=== PATIENT | female | born 1940 | race Caucasian/White ===

== ENCOUNTER 2019-09-14 08:15 | Outpatient (CLI) | payer MEDICARE, SELFPAY ==
[2019-09-14 08:28] LABS: Add Urine Microscopic? YES; Appearance Urine Clear (Clear); Basophils Absolute Auto 0.06 K/mm3 (0.00-0.10); Basophils Percent Auto 0.8 % (0.0-1.0); Bilirubin Urine Negative (Negative); Blood Urine 2+ (Negative); Color Urine Yellow (Yellow); Eosinophils Absolute Auto 0.44 K/mm3 (0.02-0.50); Eosinophils Percent Auto 5.9 % (1.0-6.0); Glucose Urine UA Negative (Negative); Hemoglobin 12.5 g/dL (11.7-13.8); Immature Granulocyte Absolute 0.01 K/mm3 (0.00-0.00); Immature Granulocyte Percent A 0.1 % (0.0-0.0); Ketones Urine Trace (Negative); Leukocyte Esterase Ur 2+ (Negative); Lymphocytes Absolute Auto 1.83 K/mm3 (1.10-4.50); Lymphocytes Percent Auto 24.4 % (18.0-42.0); Mean Corpuscular HGB Conc 33.8 g/dL (32.0-36.0); Mean Corpuscular Volume 88.7 fL (78.0-102.0); Mean Platelet Volume 11.2 fl (9.2-11.8); Monocytes Percent Auto 10.7 % (2.0-11.0); Neutrophils Absolute Auto 4.4 K/mm3 (1.7-7.2); Neutrophils Percent Auto 58.1 % (50.0-70.0); Nitrate Urine Negative (Negative); Platelet Count Result 272 K/mm3 (150-420); Protein Urine Negative (Negative); Red Blood Count 4.17 M/mm3 (4.20-5.40); Red Cell Distribution Width 14.7 % (11.6-14.4); Specific Grav Ur 1.025 (1.010-1.020); Urobilinogen Urine 0.2 mg/dL (0.2-1.0); White Blood Count 7.5 K/mm3 (4.8-10.8)
[2019-09-14 08:35] LABS: Squamous Epithelial Cell Urine Few /hpf (Few)
[2019-09-14 08:36] LABS: Bacteria Urine 1+ /hpf; Mucus Urine Moderate /lpf
[2019-09-14 09:04] LABS: Hemoglobin A1C 6.3 % (<5.7)
[2019-09-14 09:47] LABS: Alanine Aminotransferase 28 U/L (14-59); Albumin Level 3.5 g/dL (3.4-5.0); Alkaline Phosphatase 75 U/L (46-116); Anion Gap 10.5 mmol/L (7-16); Aspartate Amino Transferase 16 U/L (15-37); Bilirubin,Total 0.4 mg/dL (0.00-1.00); Blood Urea Nitrogen 17 mg/dL (7-18); Calcium 8.3 mg/dL (8.5-10.1); Carbon Dioxide 30 mmol/L (21-32); Chloride 105 mmol/L (98-108); Cholesterol 165 mg/dL (0-200); Estimated Glomerular Filt Rate > 60; Free T3 2.58 pg/mL (2.18-3.98); Free T4 Free Thyroxine 1.17 ng/dL (0.76-1.46); Glucose 104 mg/dL (70-99); HDL Direct 49 mg/dL (40-60); LDL Cholesterol Calculated 101 mg/dL (<130); Osmolality Calculated 295 mOsm/kg (285-295); Potassium 3.5 mmol/L (3.5-5.1); Sodium 142 mmol/L (136-145); Thyroid Stimulating Hormone 1.04 uIU/mL (0.36-3.74); Total Protein 6.8 g/dL (6.4-8.2); Triglycerides 76 mg/dL (0-150)
== END 2019-09-14 08:16 | disposition home or self-care (01) ==
LOC: CHSLAB 08:17
PROVIDERS: PCP Internal Medicine; Visit Provider Internal Medicine
DX: I48.0 Paroxysmal atrial fibrillation (principal); E03.4 Atrophy of thyroid (acquired); E64.9 Sequelae of unspecified nutritional deficiency; R73.01 Impaired fasting glucose
CPT/HCPCS: 36415; 80053; 80061; 81001; 83036; 84439; 84443; 84481; 85025

== ENCOUNTER 2020-01-24 12:32 | Outpatient (CLI) | payer MEDICARE, SELFPAY | END 2020-01-24 12:33 | disposition home or self-care (01) | LOC: CHSLAB 12:36 | PROVIDERS: PCP Internal Medicine; Visit Provider Specialist | DX: L82.1 Other seborrheic keratosis (principal) | CPT/HCPCS: 88305 ==

== ENCOUNTER 2020-03-16 08:32 | Outpatient (CLI) | payer MEDICARE, SELFPAY ==
[2020-03-16 08:42] LABS: Basophils Absolute Auto 0.11 K/mm3 (0.00-0.10); Basophils Percent Auto 1.4 % (0.0-1.0); Eosinophils Absolute Auto 0.49 K/mm3 (0.02-0.50); Eosinophils Percent Auto 6.1 % (1.0-6.0); Hematocrit 40.5 % (35.0-42.0); Hemoglobin 13.3 g/dL (11.7-13.8); Immature Granulocyte Absolute 0.03 K/mm3 (0.00-0.00); Immature Granulocyte Percent A 0.4 % (0.0-0.0); Lymphocytes Absolute Auto 1.87 K/mm3 (1.10-4.50); Lymphocytes Percent Auto 23.2 % (18.0-42.0); Mean Corpuscular HGB Conc 32.8 g/dL (32.0-36.0); Mean Corpuscular Volume 91.4 fL (78.0-102.0); Monocytes Absolute Auto 0.77 K/mm3 (0.10-0.90); Monocytes Percent Auto 9.6 % (2.0-11.0); Neutrophils Absolute Auto 4.8 K/mm3 (1.7-7.2); Neutrophils Percent Auto 59.3 % (50.0-70.0); Platelet Count Result 296 K/mm3 (150-420); Red Blood Count 4.43 M/mm3 (4.20-5.40); Red Cell Distribution Width 13.8 % (11.6-14.4); White Blood Count 8.1 K/mm3 (4.8-10.8)
[2020-03-16 08:52] LABS: Add Urine Microscopic? YES; Appearance Urine Clear (Clear); Bilirubin Urine Negative (Negative); Blood Urine 1+ (Negative); Color Urine Yellow (Yellow); Glucose Urine UA Negative (Negative); Ketones Urine Negative (Negative); Leukocyte Esterase Ur 1+ (Negative); Nitrate Urine Negative (Negative); Protein Urine Negative (Negative); Urobilinogen Urine 0.2 mg/dL (0.2-1.0)
[2020-03-16 09:03] LABS: RBC Urine 0-2 /hpf (0-2); WBC Urine 0-3 /hpf (0-3)
[2020-03-16 09:04] LABS: Bacteria Urine Trace /hpf; Renal Epithelial Cells Urine Few /hpf
[2020-03-16 09:07] LABS: Hemoglobin A1C 5.7 % (<5.7)
[2020-03-16 10:07] LABS: Alanine Aminotransferase 24 U/L (14-59); Albumin Level 3.8 g/dL (3.4-5.0); Alkaline Phosphatase 88 U/L (46-116); Anion Gap 9 mmol/L (8-16); Aspartate Amino Transferase 14 U/L (15-37); Bilirubin,Total 0.6 mg/dL (0.00-1.00); Blood Urea Nitrogen 17 mg/dL (7-18); Calcium 9.2 mg/dL (8.5-10.1); Carbon Dioxide 28 mmol/L (21-32); Chloride 104 mmol/L (98-108); Estimated Glomerular Filt Rate > 60; Free T3 2.47 pg/mL (2.18-3.98); Free T4 Free Thyroxine 1.16 ng/dL (0.76-1.46); Glucose 99 mg/dL (70-99); Osmolality Calculated 293 mOsm/kg (285-295); Sodium 141 mmol/L (136-145); Thyroid Stimulating Hormone 0.68 uIU/mL (0.36-3.74); Total Protein 7.3 g/dL (6.4-8.2)
== END 2020-03-16 08:33 | disposition home or self-care (01) ==
LOC: CHSLAB 08:33
PROVIDERS: PCP Internal Medicine; Visit Provider Internal Medicine
DX: I48.0 Paroxysmal atrial fibrillation (principal); I10 Essential (primary) hypertension; E03.4 Atrophy of thyroid (acquired); R73.01 Impaired fasting glucose
CPT/HCPCS: 36415; 80053; 81001; 83036; 84439; 84443; 84481; 85025

== ENCOUNTER 2020-07-20 09:00 | Outpatient (CLI) | payer MEDICARE, SELFPAY | END 2020-07-20 09:01 | disposition home or self-care (01) | PROVIDERS: PCP Internal Medicine | DX: Z23 Encounter for immunization (principal) | CPT/HCPCS: 0001A; 91300 ==

== ENCOUNTER 2020-08-10 08:51 | Outpatient (CLI) | payer MEDICARE, SELFPAY | END 2020-08-10 08:52 | disposition home or self-care (01) | LOC: ANHCOVIDVC 08:51 | PROVIDERS: PCP Internal Medicine | DX: Z23 Encounter for immunization (principal) | CPT/HCPCS: 0002A; 91300 ==

== ENCOUNTER 2020-09-14 07:39 | Outpatient (CLI) | payer MEDICARE, SELFPAY ==
[2020-09-14 07:51] LABS: Appearance Urine Clear (Clear); Basophils Absolute Auto 0.09 K/mm3 (0.00-0.10); Basophils Percent Auto 1.2 % (0.0-1.0); Bilirubin Urine Negative (Negative); Blood Urine 2+ (Negative); Eosinophils Absolute Auto 0.43 K/mm3 (0.02-0.50); Eosinophils Percent Auto 5.5 % (1.0-6.0); Glucose Urine UA Negative (Negative); Hematocrit 39.7 % (35.0-42.0); Immature Granulocyte Absolute 0.02 K/mm3 (0.00-0.00); Immature Granulocyte Percent A 0.3 % (0.0-0.0); Ketones Urine Negative (Negative); Leukocyte Esterase Ur 2+ (Negative); Lymphocytes Absolute Auto 1.33 K/mm3 (1.10-4.50); Lymphocytes Percent Auto 17.1 % (18.0-42.0); Mean Corpuscular HGB Conc 32.7 g/dL (32.0-36.0); Mean Corpuscular Hemoglobin 30.2 pg (27.0-31.0); Mean Corpuscular Volume 92.3 fL (78.0-102.0); Mean Platelet Volume 11.1 fl (9.2-11.8); Monocytes Absolute Auto 0.72 K/mm3 (0.10-0.90); Monocytes Percent Auto 9.3 % (2.0-11.0); Neutrophils Absolute Auto 5.2 K/mm3 (1.7-7.2); Neutrophils Percent Auto 66.6 % (50.0-70.0); Nitrate Urine Negative (Negative); Platelet Count Result 257 K/mm3 (150-420); Protein Urine Negative (Negative); Specific Grav Ur 1.025 (1.010-1.020); Urobilinogen Urine 0.2 mg/dL (0.2-1.0); White Blood Count 7.8 K/mm3 (4.8-10.8)
[2020-09-14 08:00] LABS: Add Urine Microscopic? YES; Bacteria Urine 2+ /hpf; Color Urine Light Yellow (Yellow); Mucus Urine Few /lpf; Squamous Epithelial Cell Urine Few /hpf (Few); WBC Urine 16-20 /hpf (0-3)
[2020-09-14 08:05] LABS: Hemoglobin A1C 6.2 % (<5.7)
[2020-09-14 08:38] LABS: Alanine Aminotransferase 29 U/L (14-59); Albumin Level 3.7 g/dL (3.4-5.0); Alkaline Phosphatase 86 U/L (46-116); Anion Gap 10 mmol/L (8-16); Aspartate Amino Transferase 15 U/L (15-37); Bilirubin,Total 0.6 mg/dL (0.00-1.00); Blood Urea Nitrogen 15 mg/dL (7-18); Calcium 8.9 mg/dL (8.5-10.1); Carbon Dioxide 30 mmol/L (21-32); Chloride 103 mmol/L (98-108); Cholesterol 178 mg/dL (0-200); Estimated Glomerular Filt Rate > 60; Free T3 2.42 pg/mL (2.18-3.98); Free T4 Free Thyroxine 1.15 ng/dL (0.76-1.46); Glucose 109 mg/dL (70-99); HDL Direct 55 mg/dL (40-60); LDL Cholesterol Calculated 104 mg/dL (<130); Osmolality Calculated 297 mOsm/kg (285-295); Potassium 3.9 mmol/L (3.5-5.1); Sodium 143 mmol/L (136-145); Thyroid Stimulating Hormone 1.08 uIU/mL (0.36-3.74); Triglycerides 97 mg/dL (0-150)
== END 2020-09-14 07:40 | disposition home or self-care (01) ==
LOC: CHSLAB 07:41
PROVIDERS: PCP Internal Medicine; Visit Provider Internal Medicine
DX: E03.4 Atrophy of thyroid (acquired) (principal); E78.2 Mixed hyperlipidemia; I48.0 Paroxysmal atrial fibrillation; R73.01 Impaired fasting glucose
CPT/HCPCS: 36415; 80053; 80061; 81001; 83036; 84439; 84443; 84481; 85025

== ENCOUNTER 2021-03-16 09:07 | Outpatient (CLI) | payer MEDICARE, SELFPAY ==
[2021-03-16 09:29] LABS: Basophils Absolute Auto 0.08 K/mm3 (0.00-0.10); Basophils Percent Auto 1.2 % (0.0-1.0); Eosinophils Absolute Auto 0.34 K/mm3 (0.02-0.50); Hemoglobin 14.3 g/dL (11.7-13.8); Immature Granulocyte Absolute 0.02 K/mm3 (0.00-0.00); Immature Granulocyte Percent A 0.3 % (0.0-0.0); Mean Corpuscular Hemoglobin 30.8 pg (27.0-31.0); Mean Corpuscular Volume 90.3 fL (78.0-102.0); Mean Platelet Volume 11.4 fl (9.2-11.8); Monocytes Absolute Auto 0.64 K/mm3 (0.10-0.90); Monocytes Percent Auto 9.3 % (2.0-11.0); Neutrophils Absolute Auto 4.5 K/mm3 (1.7-7.2); Neutrophils Percent Auto 65.2 % (50.0-70.0); Platelet Count Result 253 K/mm3 (150-420); Red Blood Count 4.65 M/mm3 (4.20-5.40); Red Cell Distribution Width 13.9 % (11.6-14.4); White Blood Count 6.9 K/mm3 (4.8-10.8)
[2021-03-16 09:30] LABS: Add Urine Microscopic? YES; Appearance Urine Clear (Clear); Bilirubin Urine Negative (Negative); Blood Urine 2+ (Negative); Color Urine Light Yellow (Yellow); Glucose Urine UA Negative (Negative); Ketones Urine Negative (Negative); Leukocyte Esterase Ur 1+ LEU/UL (Negative); Nitrate Urine Negative (Negative); Protein Urine Negative (Negative); Urobilinogen Urine 0.2 mg/dL (0.2-1.0)
[2021-03-16 09:39] LABS: Bacteria Urine Trace /hpf; Mucus Urine Few /lpf; Squamous Epithelial Cell Urine Few /hpf (Few); WBC Urine 0-3 /hpf (0-3)
[2021-03-16 09:53] LABS: Hemoglobin A1C 5.6 % (<5.7)
[2021-03-16 10:32] LABS: Alanine Aminotransferase 28 U/L (14-59); Albumin Level 3.8 g/dL (3.4-5.0); Alkaline Phosphatase 92 U/L (46-116); Anion Gap 7 mmol/L (8-16); Aspartate Amino Transferase 13 U/L (15-37); Bilirubin,Total 0.6 mg/dL (0.00-1.00); Blood Urea Nitrogen 14 mg/dL (7-18); Calcium 8.9 mg/dL (8.5-10.1); Carbon Dioxide 32 mmol/L (21-32); Chloride 105 mmol/L (98-108); Cholesterol 182 mg/dL (0-200); Estimated Glomerular Filt Rate > 60; Free T3 2.61 pg/mL (2.18-3.98); Glucose 102 mg/dL (70-99); HDL Direct 64 mg/dL (40-60); LDL Cholesterol Calculated 102 mg/dL (<130); Osmolality Calculated 298 mOsm/kg (285-295); Potassium 4.1 mmol/L (3.5-5.1); Sodium 144 mmol/L (136-145); Thyroid Stimulating Hormone 1.19 uIU/mL (0.36-3.74); Total Protein 7.4 g/dL (6.4-8.2); Triglycerides 81 mg/dL (0-150)
== END 2021-03-16 09:08 | disposition home or self-care (01) ==
LOC: CHSLAB 09:09
PROVIDERS: PCP Internal Medicine; Visit Provider Internal Medicine
DX: E03.4 Atrophy of thyroid (acquired) (principal); I10 Essential (primary) hypertension; R73.01 Impaired fasting glucose; R82.90 Unspecified abnormal findings in urine
CPT/HCPCS: 36415; 80053; 80061; 81001; 83036; 84439; 84443; 84481; 85025; 87086

== ENCOUNTER 2021-09-14 07:42 | Outpatient (CLI) | payer MEDICARE, SELFPAY ==
[2021-09-14 08:00] LABS: Add Urine Microscopic? YES; Appearance Urine Clear (Clear); Basophils Absolute Auto 0.07 K/mm3 (0.00-0.10); Bilirubin Urine Negative (Negative); Blood Urine 1+ (Negative); Color Urine Light Yellow (Yellow); Eosinophils Absolute Auto 0.55 K/mm3 (0.02-0.50); Eosinophils Percent Auto 8.2 % (1.0-6.0); Glucose Urine UA Negative (Negative); Hematocrit 38.8 % (35.0-42.0); Hemoglobin 12.9 g/dL (11.7-13.8); Immature Granulocyte Absolute 0.03 K/mm3 (0.00-0.00); Immature Granulocyte Percent A 0.4 % (0.0-0.0); Ketones Urine Negative (Negative); Leukocyte Esterase Ur 1+ (Negative); Lymphocytes Absolute Auto 1.41 K/mm3 (1.10-4.50); Mean Corpuscular HGB Conc 33.2 g/dL (32.0-36.0); Mean Corpuscular Hemoglobin 31.1 pg (27.0-31.0); Mean Corpuscular Volume 93.5 fL (78.0-102.0); Mean Platelet Volume 11.2 fl (9.2-11.8); Monocytes Absolute Auto 0.68 K/mm3 (0.10-0.90); Monocytes Percent Auto 10.1 % (2.0-11.0); Neutrophils Percent Auto 59.3 % (50.0-70.0); Nitrate Urine Negative (Negative); Platelet Count Result 239 K/mm3 (150-420); Protein Urine Negative (Negative); Red Blood Count 4.15 M/mm3 (4.20-5.40); Red Cell Distribution Width 13.9 % (11.6-14.4); Urobilinogen Urine 0.2 mg/dL (0.2-1.0); White Blood Count 6.7 K/mm3 (4.8-10.8)
[2021-09-14 08:20] LABS: Bacteria Urine Trace /hpf; Squamous Epithelial Cell Urine Few /hpf (Few)
[2021-09-14 08:33] LABS: Alanine Aminotransferase 26 U/L (14-59); Albumin Level 3.5 g/dL (3.4-5.0); Alkaline Phosphatase 90 U/L (46-116); Anion Gap 4 mmol/L (8-16); Aspartate Amino Transferase 13 U/L (15-37); Bilirubin,Total 0.6 mg/dL (0.00-1.00); Blood Urea Nitrogen 18 mg/dL (7-18); Calcium 8.6 mg/dL (8.5-10.1); Carbon Dioxide 30 mmol/L (21-32); Chloride 105 mmol/L (98-108); Cholesterol 170 mg/dL (0-200); Creatine Kinase 135 U/L (26-192); Estimated Glomerular Filt Rate > 60; Free T4 Free Thyroxine 1.15 ng/dL (0.76-1.46); Glucose 115 mg/dL (70-99); HDL Direct 56 mg/dL (40-60); LDL Cholesterol Calculated 96 mg/dL (<130); Osmolality Calculated 290 mOsm/kg (285-295); Potassium 3.7 mmol/L (3.5-5.1); Sodium 139 mmol/L (136-145); Thyroid Stimulating Hormone 1.02 uIU/mL (0.36-3.74); Total Protein 7.4 g/dL (6.4-8.2); Triglycerides 88 mg/dL (0-150)
== END 2021-09-14 07:43 | disposition home or self-care (01) ==
LOC: CHSLAB 07:45
PROVIDERS: PCP Internal Medicine; Visit Provider Internal Medicine
DX: E03.4 Atrophy of thyroid (acquired) (principal); I10 Essential (primary) hypertension; E78.2 Mixed hyperlipidemia; R73.01 Impaired fasting glucose
CPT/HCPCS: 36415; 80053; 80061; 81001; 82550; 83036; 84439; 84443; 85025

== ENCOUNTER 2022-03-17 08:55 | Outpatient (CLI) | payer MEDICARE, SELFPAY ==
[2022-03-17 09:17] LABS: Appearance Urine Clear (Clear); Basophils Absolute Auto 0.07 K/mm3 (0.00-0.10); Bilirubin Urine Negative (Negative); Blood Urine 1+ (Negative); Eosinophils Absolute Auto 0.53 K/mm3 (0.02-0.50); Eosinophils Percent Auto 7.8 % (1.0-6.0); Glucose Urine UA Negative (Negative); Hematocrit 40.3 % (35.0-42.0); Hemoglobin 13.7 g/dL (11.7-13.8); Immature Granulocyte Absolute 0.02 K/mm3 (0.00-0.00); Immature Granulocyte Percent A 0.3 % (0.0-0.0); Ketones Urine Negative (Negative); Leukocyte Esterase Ur Trace (Negative); Lymphocytes Absolute Auto 1.41 K/mm3 (1.10-4.50); Lymphocytes Percent Auto 20.9 % (18.0-42.0); Mean Corpuscular Hemoglobin 31.4 pg (27.0-31.0); Mean Corpuscular Volume 92.4 fL (78.0-102.0); Mean Platelet Volume 11.1 fl (9.2-11.8); Monocytes Absolute Auto 0.56 K/mm3 (0.10-0.90); Monocytes Percent Auto 8.3 % (2.0-11.0); Neutrophils Absolute Auto 4.2 K/mm3 (1.7-7.2); Neutrophils Percent Auto 61.7 % (50.0-70.0); Nitrate Urine Negative (Negative); Platelet Count Result 253 K/mm3 (150-420); Protein Urine Negative (Negative); Red Blood Count 4.36 M/mm3 (4.20-5.40); Red Cell Distribution Width 13.4 % (11.6-14.4); Specific Grav Ur 1.015 (1.010-1.020); Urobilinogen Urine 0.2 mg/dL (0.2-1.0); White Blood Count 6.8 K/mm3 (4.8-10.8)
[2022-03-17 09:29] LABS: Add Urine Microscopic? YES; Color Urine Light Yellow (Yellow)
[2022-03-17 09:30] LABS: Bacteria Urine Trace /hpf; Squamous Epithelial Cell Urine Few /hpf (Few); WBC Urine 0-3 /hpf (0-3)
[2022-03-17 09:57] LABS: Alanine Aminotransferase 27 U/L (14-59); Albumin Level 3.7 g/dL (3.4-5.0); Alkaline Phosphatase 89 U/L (46-116); Anion Gap 6 mmol/L (8-16); Aspartate Amino Transferase 15 U/L (15-37); Bilirubin,Total 0.5 mg/dL (0.00-1.00); Blood Urea Nitrogen 15 mg/dL (7-18); Calcium 8.8 mg/dL (8.5-10.1); Carbon Dioxide 34 mmol/L (21-32); Chloride 103 mmol/L (98-108); Cholesterol 183 mg/dL (0-200); Estimated Glomerular Filt Rate > 60; Free T3 2.49 pg/mL (2.18-3.98); Free T4 Free Thyroxine 0.99 ng/dL (0.76-1.46); Glucose 119 mg/dL (70-99); HDL Direct 56 mg/dL (40-60); LDL Cholesterol Calculated 101 mg/dL (<130); Osmolality Calculated 297 mOsm/kg (285-295); Potassium 3.9 mmol/L (3.5-5.1); Sodium 143 mmol/L (136-145); Thyroid Stimulating Hormone 1.47 uIU/mL (0.36-3.74); Total Protein 7.3 g/dL (6.4-8.2); Triglycerides 130 mg/dL (0-150)
[2022-03-21 14:47] LABS: Vitamin D 25 Hydroxy 29 ng/mL (30-100)
== END 2022-03-17 08:56 | disposition home or self-care (01) ==
LOC: CHSLAB 08:58
PROVIDERS: PCP Internal Medicine; Visit Provider Internal Medicine
DX: R73.01 Impaired fasting glucose (principal); E78.2 Mixed hyperlipidemia; M81.0 Age-related osteoporosis without current pathological fracture; I48.0 Paroxysmal atrial fibrillation; I10 Essential (primary) hypertension; E03.4 Atrophy of thyroid (acquired)
CPT/HCPCS: 36415; 80053; 80061; 81001; 82306; 83036; 84439; 84443; 84481; 85025

== ENCOUNTER 2022-09-15 10:03 | Outpatient (CLI) | payer MEDICARE, SELFPAY ==
[2022-09-15 10:22] LABS: Basophils Absolute Auto 0.08 K/mm3 (0.00-0.10); Basophils Percent Auto 1.1 % (0.0-1.0); Eosinophils Absolute Auto 0.49 K/mm3 (0.02-0.50); Eosinophils Percent Auto 6.7 % (1.0-6.0); Hematocrit 39.5 % (35.0-42.0); Hemoglobin 13.1 g/dL (11.7-13.8); Immature Granulocyte Absolute 0.02 K/mm3 (0.00-0.00); Immature Granulocyte Percent A 0.3 % (0.0-0.0); Lymphocytes Absolute Auto 1.91 K/mm3 (1.10-4.50); Lymphocytes Percent Auto 26.2 % (18.0-42.0); Mean Corpuscular HGB Conc 33.2 g/dL (32.0-36.0); Mean Corpuscular Volume 93.4 fL (78.0-102.0); Mean Platelet Volume 10.8 fl (9.2-11.8); Monocytes Absolute Auto 0.66 K/mm3 (0.10-0.90); Monocytes Percent Auto 9.1 % (2.0-11.0); Neutrophils Absolute Auto 4.1 K/mm3 (1.7-7.2); Neutrophils Percent Auto 56.6 % (50.0-70.0); Platelet Count Result 262 K/mm3 (150-420); Red Blood Count 4.23 M/mm3 (4.20-5.40); White Blood Count 7.3 K/mm3 (4.8-10.8)
[2022-09-15 10:33] LABS: Hemoglobin A1C 6.1 % (<5.7)
[2022-09-15 10:37] LABS: Appearance Urine Clear (Clear); Bilirubin Urine Negative (Negative); Blood Urine 1+ (Negative); Color Urine Light Yellow (Yellow); Glucose Urine UA Negative (Negative); Ketones Urine Negative (Negative); Leukocyte Esterase Ur Trace (Negative); Nitrate Urine Negative (Negative); Protein Urine Negative (Negative); Urobilinogen Urine 0.2 mg/dL (0.2-1.0)
[2022-09-15 10:45] LABS: Add Urine Microscopic? YES; Bacteria Urine Rare /hpf; RBC Urine 0-2 /hpf (0-2); Squamous Epithelial Cell Urine Rare /hpf (Few); WBC Urine None seen /hpf (0-3)
[2022-09-15 10:47] LABS: Creatinine Urine 96.71 mg/dL (40-278); MALB Creatinine Ratio 13.4 mg/g (0-30); Microalbumin Urine Random < 13.0 mg/L
[2022-09-15 11:25] LABS: Alanine Aminotransferase 30 U/L (14-59); Albumin Level 3.6 g/dL (3.4-5.0); Alkaline Phosphatase 85 U/L (46-116); Anion Gap 9 mmol/L (8-16); Aspartate Amino Transferase 20 U/L (15-37); Bilirubin,Total 0.5 mg/dL (0.00-1.00); Blood Urea Nitrogen 16 mg/dL (7-18); Calcium 9.1 mg/dL (8.5-10.1); Carbon Dioxide 29 mmol/L (21-32); Chloride 104 mmol/L (98-108); Cholesterol 167 mg/dL (0-200); Creatine Kinase 113 U/L (26-192); Estimated Glomerular Filt Rate > 60; Free T3 2.93 pg/mL (2.18-3.98); Free T4 Free Thyroxine 1.24 ng/dL (0.76-1.46); Glucose 113 mg/dL (70-99); HDL Direct 53 mg/dL (40-60); LDL Cholesterol Calculated 93 mg/dL (<130); Osmolality Calculated 296 mOsm/kg (285-295); Potassium 3.9 mmol/L (3.5-5.1); Sodium 142 mmol/L (136-145); Thyroid Stimulating Hormone 0.31 uIU/mL (0.36-3.74); Total Protein 7.1 g/dL (6.4-8.2); Triglycerides 107 mg/dL (0-150)
== END 2022-09-15 10:04 | disposition home or self-care (01) ==
LOC: CHSLAB 10:05
PROVIDERS: PCP Internal Medicine; Visit Provider Internal Medicine
DX: I10 Essential (primary) hypertension (principal); E78.2 Mixed hyperlipidemia; E03.4 Atrophy of thyroid (acquired); R73.01 Impaired fasting glucose
CPT/HCPCS: 36415; 80053; 80061; 81001; 82043; 82550; 83036; 84439; 84443; 84481; 85025

== ENCOUNTER 2023-03-31 09:26 | Outpatient (CLI) | payer MEDICARE, SELFPAY ==
[2023-03-31 09:43] LABS: Basophils Absolute Auto 0.08 K/mm3 (0.00-0.10); Basophils Percent Auto 1.3 % (0.0-1.0); Eosinophils Absolute Auto 0.35 K/mm3 (0.02-0.50); Eosinophils Percent Auto 5.9 % (1.0-6.0); Hematocrit 37.7 % (35.0-42.0); Hemoglobin 12.3 g/dL (11.7-13.8); Immature Granulocyte Absolute 0.01 K/mm3 (0.00-0.00); Immature Granulocyte Percent A 0.2 % (0.0-0.0); Lymphocytes Absolute Auto 1.46 K/mm3 (1.10-4.50); Lymphocytes Percent Auto 24.4 % (18.0-42.0); Mean Corpuscular HGB Conc 32.6 g/dL (32.0-36.0); Mean Corpuscular Hemoglobin 29.8 pg (27.0-31.0); Mean Corpuscular Volume 91.3 fL (78.0-102.0); Neutrophils Absolute Auto 3.5 K/mm3 (1.7-7.2); Neutrophils Percent Auto 58.2 % (50.0-70.0); Platelet Count Result 267 K/mm3 (150-420); Red Blood Count 4.13 M/mm3 (4.20-5.40); Red Cell Distribution Width 14.6 % (11.6-14.4)
[2023-03-31 09:47] LABS: Appearance Urine Clear (Clear); Bilirubin Urine Negative (Negative); Blood Urine 2+ (Negative); Color Urine Yellow (Yellow); Glucose Urine UA Negative (Negative); Ketones Urine Negative (Negative); Leukocyte Esterase Ur Negative (Negative); Nitrate Urine Negative (Negative); Protein Urine Negative (Negative); Specific Grav Ur >= 1.030 (1.010-1.020); Urobilinogen Urine 0.2 mg/dL (0.2-1.0)
[2023-03-31 10:00] LABS: Add Urine Microscopic? YES
[2023-03-31 10:01] LABS: Bacteria Urine Trace /hpf; Mucus Urine Few /lpf; Squamous Epithelial Cell Urine Moderate /hpf (Few); WBC Urine None seen /hpf (0-3)
[2023-03-31 10:52] LABS: Alanine Aminotransferase 24 U/L (14-59); Albumin Level 3.7 g/dL (3.4-5.0); Alkaline Phosphatase 106 U/L (46-116); Anion Gap 6 mmol/L (8-16); Aspartate Amino Transferase 36 U/L (15-37); Bilirubin,Total 0.6 mg/dL (0.00-1.00); Blood Urea Nitrogen 16 mg/dL (7-18); Calcium 9.3 mg/dL (8.5-10.1); Carbon Dioxide 33 mmol/L (21-32); Chloride 100 mmol/L (98-108); Cholesterol 185 mg/dL (0-200); Creatine Kinase 114 U/L (26-192); Estimated Glomerular Filt Rate 59; Free T3 2.35 pg/mL (2.18-3.98); Free T4 Free Thyroxine 1.07 ng/dL (0.76-1.46); Glucose 104 mg/dL (70-99); HDL Direct 52 mg/dL (40-60); LDL Cholesterol Calculated 116 mg/dL (<130); Osmolality Calculated 289 mOsm/kg (285-295); Potassium 3.9 mmol/L (3.5-5.1); Sodium 139 mmol/L (136-145); Thyroid Stimulating Hormone 2.88 uIU/mL (0.36-3.74); Total Protein 7.2 g/dL (6.4-8.2); Triglycerides 87 mg/dL (0-150)
== END 2023-03-31 09:27 | disposition home or self-care (01) ==
PROVIDERS: PCP Internal Medicine; Visit Provider Internal Medicine
DX: I48.0 Paroxysmal atrial fibrillation (principal); I10 Essential (primary) hypertension; E03.4 Atrophy of thyroid (acquired); R31.21 Asymptomatic microscopic hematuria; R73.01 Impaired fasting glucose
CPT/HCPCS: 36415; 80053; 80061; 81001; 82550; 83036; 84439; 84443; 84481; 85025

== ENCOUNTER 2023-05-21 12:56 | Outpatient (CLI) | payer MEDICARE, SELFPAY ==
[2023-05-21 13:37] LABS: Anion Gap 9 mmol/L (8-16); Blood Urea Nitrogen 16 mg/dL (7-18); Carbon Dioxide 32 mmol/L (21-32); Chloride 101 mmol/L (98-108); Estimated Glomerular Filt Rate > 60; Glucose 102 mg/dL (70-99); Osmolality Calculated 295 mOsm/kg (285-295); Potassium 3.7 mmol/L (3.5-5.1); Sodium 142 mmol/L (136-145)
== END 2023-05-21 12:57 | disposition home or self-care (01) ==
LOC: CHSLAB 12:59
PROVIDERS: PCP Internal Medicine; Visit Provider Internal Medicine
DX: I10 Essential (primary) hypertension (principal)
CPT/HCPCS: 36415; 80048

== ENCOUNTER 2023-10-10 08:51 | Outpatient (CLI) | payer MEDICARE, SELFPAY ==
[2023-10-10 10:35] LABS: Basophils Absolute Auto 0.06 K/mm3 (0.00-0.10); Basophils Percent Auto 0.9 % (0.0-1.0); Eosinophils Percent Auto 5.7 % (1.0-6.0); Hematocrit 37.3 % (35.0-42.0); Hemoglobin 12.3 g/dL (11.7-13.8); Immature Granulocyte Absolute 0.02 K/mm3 (0.00-0.00); Immature Granulocyte Percent A 0.3 % (0.0-0.0); Lymphocytes Absolute Auto 1.39 K/mm3 (1.10-4.50); Lymphocytes Percent Auto 19.8 % (18.0-42.0); Mean Corpuscular Hemoglobin 29.7 pg (27.0-31.0); Mean Corpuscular Volume 90.1 fL (78.0-102.0); Mean Platelet Volume 11.5 fl (9.2-11.8); Monocytes Percent Auto 8.6 % (2.0-11.0); Neutrophils Absolute Auto 4.54 K/mm3 (1.70-7.20); Neutrophils Percent Auto 64.7 % (50.0-70.0); Platelet Count Result 253 K/mm3 (150-420); Red Blood Count 4.14 M/mm3 (4.20-5.40); Red Cell Distribution Width 14.7 % (11.6-14.4)
[2023-10-10 10:53] LABS: Alanine Aminotransferase 24 U/L (14-59); Albumin Level 3.5 g/dL (3.4-5.0); Alkaline Phosphatase 83 U/L (46-116); Anion Gap 7 mmol/L (4-12); Aspartate Amino Transferase 16 U/L (15-37); Bilirubin,Total 0.6 mg/dL (0.00-1.00); Blood Urea Nitrogen 15 mg/dL (7-18); Calcium 8.8 mg/dL (8.5-10.1); Carbon Dioxide 29 mmol/L (21-32); Chloride 103 mmol/L (98-108); Cholesterol 177 mg/dL (0-200); Estimated Glomerular Filt Rate > 60; Free T4 Free Thyroxine 1.21 ng/dL (0.76-1.46); Glucose 102 mg/dL (70-99); HDL Direct 57 mg/dL (40-60); LDL Cholesterol Calculated 102 mg/dL (<130); Osmolality Calculated 288 mOsm/kg (285-295); Sodium 139 mmol/L (136-145); Thyroid Stimulating Hormone 0.68 uIU/mL (0.36-3.74); Total Protein 7.2 g/dL (6.4-8.2); Triglycerides 88 mg/dL (0-150)
[2023-10-10 12:25] LABS: Appearance Urine Clear (Clear); Bilirubin Urine Negative (Negative); Blood Urine 1+ (Negative); Color Urine Light Yellow (Yellow); Glucose Urine UA Negative (Negative); Hemoglobin A1C 6.1 % (<5.7); Ketones Urine Negative (Negative); Leukocyte Esterase Ur Negative LEU/UL (Negative); Nitrate Urine Negative (Negative); Protein Urine Negative (Negative); Specific Grav Ur 1.015 (1.010-1.020); Urobilinogen Urine 0.2 mg/dL (0.2-1.0)
[2023-10-10 12:38] LABS: Add Urine Microscopic? YES
[2023-10-10 12:45] LABS: RBC Urine None seen /hpf (0-2)
== END 2023-10-10 08:52 | disposition home or self-care (01) ==
LOC: CHSLAB 08:53
PROVIDERS: PCP Internal Medicine; Visit Provider Internal Medicine
DX: I10 Essential (primary) hypertension (principal); E03.4 Atrophy of thyroid (acquired); R31.21 Asymptomatic microscopic hematuria; R73.01 Impaired fasting glucose
CPT/HCPCS: 36415; 80053; 80061; 81001; 83036; 84439; 84443; 85025

== ENCOUNTER 2023-11-03 10:55 | Outpatient (RCR) | payer MEDICARE, SELFPAY ==
--- NOTE | 2023-11-03 12:27 | OPREHPOC ---
Outpatient Therapy Plan of Care This is a Multidisciplinary Plan of Care that may contain components documented by all disciplines (PT, OT, and ST.) PT Problem 1 PT Problem #1 Knowledge Deficit PT Goal 1 Goal The patient will be independent in a home exercise program. Target Visit 2 PT Problem 2 PT Problem #2 Impaired Endurance PT Goal 1 Goal The patient will be able to ambulate 800 feet during the 6 minute walk test without rest breaks. Target Visit 12 PT Problem 3 PT Problem #3 Impaired Functional Mobil PT Goal 1 Goal The patient will be able to transfer sit to stand without use of the UE to improve functional mobility and LE strength. Target Visit 12 PT Problem 4 PT Problem #4 Impaired Strength PT Goal 1 Goal The patient will improve right ankle inversion and eversion strength to 3+/5 to improve stability in the ankle for gait and single limb stance. Target Visit 12 PT Problem 5 PT Problem #5 Impaired Balance PT Goal 1 Goal The patient will improve the Tinetti Balance Scale to at least 19 indicating a moderate fall risk instead of a high fall risk. Target Visit 12
--- NOTE | 2023-11-03 12:28 | PTOPEVAL1 ---
Assessment and note entered by Suzie Butts, PT Evaluation Information Assessment Status Evaluation ICD-10 Condition Codes (PT) R26.9 Other ICD-10 Condition Codes ( Z91.81 PT) Onset 10/26/23 Subjective Information Dominguez Lowe reports she had a spontaneous fracture of her right ankle in November 2022 that was caused by having a partial tear in her tibialis tendon prior to the fracture. She underwent surgical stabilization of the fracture on 11/07/22 and did not have any PT after the surgery. She also has been diagnosed with osteoporosis. She takes vitamin D for her osteoporosis. She has been seen by a bone density specialist and was recommended to have an injection for the osteoporosis. She was referred to PT by her bone density specialist to work on her balance and ability to walk. She is only ambulating household distances and short grocery trips. She is using a small based quad cane for ambulation and has for years. She last fell about a year ago when she broke her ankle. She reports she has a lot of trouble walking on uneven and sloped ground as well as decreased balance causing her to grab furniture a lot. She lives in a single story home with a basement and since she fractured her ankle she had a chair lift installed . She does have to go to the basement for laundry. She has a ramp to get into her house and she can not go up and down stairs. She has custom made orthotics. Reported Pain Level Pain Score 0: Self Report Assessment PT Clinical Summary Dominguez Lowe presents with poor balance and decreased gait. She sustained a right ankle compound fracture requiring surgical stabilization on 11/07/22. She also has osteoporosis. She reports inability to navigate stairs, decreased endurance with gait, and decreased balance leading to difficulty walking on uneven terrain and sloped ground. She demonstrates decreased right > left ankle, knee, and hip strength; decreased balance; altered gait; and decreased endurance. She will benefit from skilled PT to address these limitations. Plan of Care Interventions Gait Training,Neuro Re-education,Patient/Caregiver Educati,Therapeutic Activities PT Services Indicated Yes
--- NOTE | 2023-11-25 15:02 | OPREHPOC ---
Outpatient Therapy Plan of Care This is a Multidisciplinary Plan of Care that may contain components documented by all disciplines (PT, OT, and ST.) PT Problem 1 PT Problem #1 Knowledge Deficit PT Goal 1 Goal / Goal Update The patient will be independent in a home exercise program. Target Visit 2 Progress Met PT Problem 2 PT Problem #2 Impaired Endurance PT Goal 1 Goal / Goal Update The patient will be able to ambulate 800 feet during the 6 minute walk test without rest breaks. continue Target Visit 12 Progress Partially Met PT Problem 3 PT Problem #3 Impaired Functional Mobil PT Goal 1 Goal / Goal Update The patient will be able to transfer sit to stand without use of the UE to improve functional mobility and LE strength. Target Visit 12 Progress Met PT Problem 4 PT Problem #4 Impaired Strength PT Goal 1 Goal / Goal Update The patient will improve right ankle inversion and eversion strength to 3+/5 to improve stability in the ankle for gait and single limb stance. Target Visit 12 PT Problem 5 PT Problem #5 Impaired Balance PT Goal 1 Goal / Goal Update The patient will improve the Tinetti Balance Scale to at least 19 indicating a moderate fall risk instead of a high fall risk. Target Visit 12
--- NOTE | 2023-11-25 15:02 | PTOPPROGNS ---
Assessment and note entered by JT File, PT Evaluation Information Assessment Status Progress ICD-10 Condition Codes (PT) R26.9 Other ICD-10 Condition Codes ( Z91.81 PT) Onset 10/26/23 Subjective Information patient reports she feels she is coming along fair . she reports she was in a wheelchair for 9 months , and understands that her progress will be slow. she reports she has no pain today, and has had no falls. she reports she is still afraid she is going to have another collapse in her ankles. she reports she still has difficulty with stability of her foot while she is standing/walking. Assessment PT Clinical Summary mrs. mckeon presents to skilled PT today for her 10th skilled PT visit. she has made progress in ambulation mechanics, transfers, and balance. she had made partial progress towards goals, and continues to be a good rehab candidate. continued skilled PT is indicated to achieve remaining goals to improve her quality of life/functional activity performance Plan of Care Interventions Gait Training,Neuro Re-education,Patient/Caregiver Educati,Therapeutic Activities PT Services Indicated Yes Treatment Frequency and continue skilled PT per initial POC Duration These treatments will address the objective and functional deficits as defined above. The patient will be advanced safely and appropriately in order for the patient to progress towards his/her prior level of function. Additional exercises will be introduced and as well as a comprehensive home exercise program upon discharge, if needed, ?to ensure carryover of functional gains achieved in the clinic. This treatment plan has been reviewed and agreement upon by the patient.
== END 2023-11-30 16:00 | disposition home or self-care (01) ==
LOC: CHSPT 10:55
DX: Z91.81 History of falling (principal)
CPT/HCPCS: 97110; 97112; 97161; 97750

== ENCOUNTER 2024-04-18 09:48 | Outpatient (CLI) | payer MEDICARE, SELFPAY ==
[2024-04-18 10:17] LABS: Hematocrit 37.6 % (35.0-42.0); Hemoglobin 12.3 g/dL (11.7-13.8); Mean Corpuscular HGB Conc 32.7 g/dL (32-36); Mean Corpuscular Hemoglobin 29.6 pg (27.0-31.0); Mean Corpuscular Volume 90.6 fL (78.0-102.0); Mean Platelet Volume 10.9 fl (9.2-11.8); Platelet Count Result 231 K/mm3 (150-420); Red Blood Count 4.15 M/mm3 (4.20-5.40); Red Cell Distribution Width 14.3 % (11.6-14.4); White Blood Count 6.1 K/mm3 (4.8-10.8)
[2024-04-18 10:20] LABS: Add Urine Microscopic? YES; Appearance Urine Clear (Clear); Bilirubin Urine Negative (Negative); Blood Urine Trace-intact (Negative); Color Urine Light Yellow (Yellow); Glucose Urine UA Negative (Negative); Ketones Urine Negative (Negative); Leukocyte Esterase Ur 1+ (Negative); Nitrate Urine Negative (Negative); Protein Urine Negative (Negative); Specific Grav Ur 1.015 (1.010-1.020); Urobilinogen Urine 0.2 mg/dL (0.2-1.0)
[2024-04-18 10:24] LABS: Bacteria Urine Trace /hpf; RBC Urine 0-2 /hpf (0-2); Squamous Epithelial Cell Urine Moderate /hpf (Few); WBC Urine 0-3 /hpf (0-3)
[2024-04-18 10:27] LABS: Hemoglobin A1C 5.8 % (<5.7)
[2024-04-18 11:24] LABS: Alanine Aminotransferase 26 U/L (14-59); Albumin Level 3.5 g/dL (3.4-5.0); Alkaline Phosphatase 87 U/L (46-116); Anion Gap 7 mmol/L (4-12); Aspartate Amino Transferase 15 U/L (15-37); Bilirubin,Total 0.7 mg/dL (0.00-1.00); Blood Urea Nitrogen 14 mg/dL (7-18); Calcium 8.8 mg/dL (8.5-10.1); Carbon Dioxide 32 mmol/L (21-32); Chloride 104 mmol/L (98-108); Cholesterol 156 mg/dL (0-200); Creatine Kinase 120 U/L (26-192); Estimated Glomerular Filt Rate > 60; Free T4 Free Thyroxine 1.16 ng/dL (0.76-1.46); Glucose 102 mg/dL (70-99); HDL Direct 54 mg/dL (40-60); LDL Cholesterol Calculated 84 mg/dL (<130); Osmolality Calculated 296 mOsm/kg (285-295); Potassium 3.9 mmol/L (3.5-5.1); Sodium 143 mmol/L (136-145); Thyroid Stimulating Hormone 0.18 uIU/mL (0.36-3.74); Triglycerides 92 mg/dL (0-150)
== END 2024-04-18 09:49 | disposition home or self-care (01) ==
LOC: CHSLAB 09:50
PROVIDERS: PCP Internal Medicine; Visit Provider Internal Medicine
DX: I48.0 Paroxysmal atrial fibrillation (principal); I10 Essential (primary) hypertension; E03.4 Atrophy of thyroid (acquired); R73.01 Impaired fasting glucose; E78.2 Mixed hyperlipidemia
CPT/HCPCS: 36415; 80053; 80061; 81001; 82550; 83036; 84439; 84443; 85027

== ENCOUNTER 2024-06-29 09:23 | Outpatient (CLI) | payer MEDICARE, SELFPAY ==
--- OUTSIDE RECORDS SUMMARY | 2024-06-29 10:06 | XMS_ITS | Clinical Summary ---
Author Organization [facility] Address [facility] [place] [address] Care Team Providers Care Enrober Name Role Phone Rehan Knight MD Unavailable Davy Carias MD Primary Care Provider Allergies Active Allergy Reactions Criticality Noted Date Comments Adhesive Chlorhexidine Redness Low 08/14/2022 Diltiazem Swelling Medium 08/14/2022 Lisinopril Cough Low 08/14/2022 Losartan Unknown 11/11/2018 Metoprolol Unknown 08/14/2022 Tramadol Hcl Unknown 11/11/2018 Medications amLODIPine (NORVASC) 5 mg tablet Active levothyroxine (SYNTHROID, LEVOTHROID) 100 mcg tablet Active acetaminophen (TYLENOL) 325 mg tabletIndicatio ns:Pain Take 2 tablets (650 mg total) by mouth every 6 (six) hours 30 tablet 11/10/2022 Active Eliquis 5 mg tablet 11/24/2022 Active ergocalciferol, vitamin D2, (VITAMIN D2 ORAL) Take 2,000 Units by mouth daily Active amoxicillin 500 mg capsule 04/13/2023 Active indapamide (LOZOL) 1.25 mg tablet 07/06/2023 Active Active Problems Problem Noted Date Diagnosed Date Primary osteoarthritis, right ankle and foot Ascending aortic aneurysm 11/25/2022 Cough 11/25/2022 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/2022): primary care physician documents chronic cough with symptoms suggestive of asthmatic bronchitis no acute symptoms presentat night - non productive Hand paresthesia 11/25/2022 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/2022): from chemo 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 11/25/2022 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/2022): low-grade adenosquamous tumors Mass of breast 11/25/2022 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/2022): right breast Steatosis of liver 11/25/2022 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/2022): Documented and Primary care physician's note [place] (hard of hearing) 11/25/2022 Open displaced comminuted fracture of shaft of r ight tibia 11/07/2022 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 - I am available if any future fluctuations occur. I reviewed that if her hearing significantly declines we can always repeat cochlear implant evaluation, but currently she is not a candidate. We also reviewed the extensive workup the did not show any evidence of treatable ear disease or autoimmune disease. I am happy to reassess if there are future developments. Malignant neoplasm of kidney 09/18/2015 Overview (07/16/2017): Description: s/p R partial nephrectomy 14yrs ago Encounters Date Type Department Care Team Description 04/28/2024 10:30 AM MANAGER MARKETING Lab [facility] [address] [place] [address] MGUS (monoclonal gammopathy of unknown significance) 04/28/2024 10:30 AM MANAGER MARKETING Lab [facility] Oncology [address] [place] [address] 04/28/2024 9:30 AM MANAGER MARKETING Office Visit [facility] Hematology [address] Medical Office Building [address] [place] [id number] Cherri Durham MD MGUS (monoclonal gammopathy of unknown significance) (Primary Dx); Abnormal SPEP 04/21/2024 Telephone [facility] Hematology [address] [place] [address] Hillary Hinojosa from Last 3 Months Immunizations Immunization Administration Dates Next Due Tdap 11/07/2022 Surgical History Surgery Date Site/Laterality Comments AR TONSILLECTOMY PRIMARY/SECONDARY <AGE 14 Tonsillectomy - (Added by TW Conv) HYSTERECTOMY Total Hysterectomy - (Added by TW Conv) AR EXPLORATORY LAPAROTOMY CELIOTOMY W/WO BIOPSY SPX Exploratory Laparotomy - (Added by TW Conv) THYROIDECTOMY, PARTIAL 04/06/1963 - 04/05/1964 TUBAL LIGATION 04/06/1982 - 04/05/1983 PARTIAL NEPHRECTOMY 04/06/2000 - 04/05/2001 Right REPLACEMENT TOTAL KNEE Right CATARACT EXTRACTION 04/06/2015 - 04/05/2016 Right REPLACEMENT TOTAL KNEE 04/06/2016 - 04/05/2017 Left CATARACT EXTRACTION 04/06/2017 - 04/05/2018 Left BREAST MASS EXCISION 04/06/2019 - 04/05/2020 Right MASTECTOMY, PARTIAL 04/06/2020 - 04/05/2021 Right MASTECTOMY, PARTIAL 04/06/2020 - 04/05/2021 Left Medical History Medical History Date Comments 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 - (Added by TW Conv) Personal history of other ma lignant neoplasm of large intestine History of malignant neopl asm of colon - (Added by TW Conv) Personal history of other di seases of the circulatory system History of hypertension - (A dded by TW Conv) Personal history of other di seases of the circulatory system History of atrial fibrillati on - (Added by TW Conv) Personal history of other di seases of the respiratory system History of asthma - (Added b y TW Conv) Personal history of malignant neoplasm History of malignant neoplasm - (Added by TW Conv) PONV (postoperative nausea and vomiting) Motion sickness Family History Medical History Relation Name Comments Asthma Child Family history of asthma - (Added by TW Conv) Arthritis Father Family history of arthritis - (Added by TW Conv) Kidney cancer Father Family history of malignant neoplasm of kidney - (Added by TW Conv) Diabetes Mother Family history of diabetes mellitus - (Added by TW Conv) Hypertension Mother Family history of hypertension - (Added by TW Conv) Pancreatic cancer Mother Family his tory of pancreatic cancer - (Added by TW Conv) Breast cancer Other Family history of malignant neoplasm of breast - (Added by TW Conv) Anesthesia problems Neg Hx Malig Hypertension Neg Hx Malig Hyperthermia Neg Hx Pseudochol deficiency Neg Hx Relation Name Status Comments Child Father Mother Other Social History Tobacco Use Types Packs/Day Years Used Date Smoking Tobacco: Never Smokeless Tobacco: Never Tobacco Cessation:Counseling Given: Not Answered AUDIT-C Answer Date Recorded Q1: How often do you have a drink containing alcohol? Never 04/28/2024 Q2: How many drinks containi ng alcohol do you have on a typical day when you are drinking? Patient does not drink Q3: How often do you have si x or more drinks on one occasion? Never 04/28/2024 PHQ-2 Answer Date Recorded PHQ-2 Total Score (If total score is 3 or more points, staff should administer the PHQ-9) 0 11/08/2022 Personal Safety Answer Date Recorded Have you ever been in or are you currently in a harmful physical or emotional relationship or is someone making you feel afraid or unsafe? Denies 11/07/2022 Comments No Sex and Gender Information Value Date Recorded Sex Assigned at Not on file Legal Sex Female 7:57 AM MANAGER MARKETING Gender Identity Not on file Sexual Orientation Not on file Obstetrics History Last Filed Vital Signs Vital Sign Reading Time Taken Comments Blood Pressure 136/85 04/28/2024 9:13 AM MANAGER MARKETING Pulse 91 04/28/2024 9:13 AM MANAGER MARKETING Temperature 36.8 C (98.2 F) 04/28/2024 9:13 AM MANAGER MARKETING Respiratory Rate 18 04/28/2024 9:13 AM MANAGER MARKETING Oxygen Saturation 96% 04/28/2024 9:13 AM MANAGER MARKETING Inhaled Oxygen Concentration - - Weight 88.8 kg (195 lb 12.8 oz) 04/28/2024 9:13 AM MANAGER MARKETING Height 160 cm (5' 3 ) 04/28/2024 9:13 AM MANAGER MARKETING Body Mass Index 34.68 04/28/2024 9:13 AM MANAGER MARKETING Plan of Treatment Health Maintenance Due Date Last Done Comments Hepatitis B Screening 1958 Zoster Vaccine (1 of 2) 1992 Well Visit 65+ 09/04/2007 Depression Screening 11/08/2023 11/07/2022, 11/08/19 Fall Risk Assessment 11/11/2023 11/10/2022 Covid-19 Vaccine (3 - 2023-2 5 season) 2023 08/10/2020, 07/20/2020 Influenza Vaccine (#1) 2023 , 02/06/2020, 01/13/2019, Additional history exists Osteoporosis Screening-Bone Density Scan 10/25/2025 10/26/2023 DTaP/Tdap/Td Vaccine (2 - Td or Tdap) 11/07/2032 11/07/2022 Pneumococcal vaccine 65+ Completed 018, 01/11/2017, 09/26/2011, Additional history exists Medical Devices Implanted Type Area River Guide Device Identifier Shelf Expiration Date Model / Serial / Lot Synthes 3.5mm 6mm 75mm 2.5mm Self Tap Small Hexagonal Socket Low Profile 204.875 - [id number] Implanted:Qty: 2 on 11/07/2022 by Gerson Hernandez MD at [facility] Right: Leg Synthes I 204.875 / / Synthes 3.5mm 6mm 14mm 2.5mm Self Tap Small Hexagonal Socket Low Profile 204.814 - [id number] Implanted:Qty: 3 on 11/07/2022 by Gerson Hernandez MD at [facility] Right: Leg Synthes I 204.814 / / Synthes 3.5mm 6mm 48mm 2.5mm Self Tap Small Hexagonal Socket Low Profile 204.848 - [id number] Implanted:Qty: 1 on 11/07/2022 by Gerson Hernandez MD at [facility] Right: Leg Synthes I 204.848 / / Synthes Lcp Combi 177mm 11 Hole Fibula Right Distal Lateral Contour Plate 02.112.152 - [id number] Implanted:Qty: 1 on 11/07/2022 by Gerson Hernandez MD at [facility] Right: Leg Synthes I 02.112.15 2 / / Synthes Lcp 58mm 2 Hole Head 7 Hole Shaft Low Profile Cut To Length T 249.670 - [id number] Implanted:Qty: 1 on 11/07/2022 by Gerson Hernandez MD at [facility] Right: Leg Synthes I 249.670 / / Synthes 2.4mm 4mm 36mm Self Tap Self Retain Stardrive Low Profile Cortex 201.786 - [id number] Implanted:Qty: 1 on 11/07/2022 by Gerson Hernandez MD at [facility] Right: Leg Synthes I 201.786 / / Synthes Screw Bone 2.4mm 48mm Lcp Ss T8 Forefoot Midfoot Cortex 02.210.948 - [id number] Implanted:Qty: 1 on 11/07/2022 by Gerson Hernandez MD at [facility] Right: Leg Synthes I 02.210.94 8 / / Synthes 2.4mm 4mm 40mm Self Tap Self Retain Stardrive Low Profile Cortex 201.790 - [id number] Implanted:Qty: 1 on 11/07/2022 by Gerson Hernandez MD at [facility] Right: Leg Synthes I 201.790 / / Synthes 2.4mm 4mm 30mm Self Tap Self Retain Stardrive Low Profile Cortex 201.780 - [id number] Implanted:Qty: 1 on 11/07/2022 by Gerson Hernandez MD at [facility] Right: Leg Synthes I 201.780 / / Synthes 2.7mm 2.1mm 18mm Self Tap Lock Stardrive Thread Head Profile T8 202.218 - [id number] Implanted:Qty: 3 on 11/07/2022 by Gerson Hernandez MD at [facility] Right: Leg Synthes I 202.218 / / Synthes 2.7mm 2.1mm 20mm Self Tap Lock Stardrive Thread Head Profile T8 202.220 - [id number] Implanted:Qty: 2 on 11/07/2022 by Gerson Hernandez MD at [facility] Right: Leg Synthes I 202.220 / / Explanted Type Area River Guide Device Identifier Shelf Expiration Date Model / Serial / Lot [employer] Azucena .062in 9in Trocar Point One [employer] Wire [id number] - [id number] Explanted:Qty: 3 on 11/07/2022 by Gerson Hernandez MD at [facility] Right: Leg [employer] [id number] / / Procedures Procedure Name Priority Date/Time Associated Diagnosis Comments EGFR Routine 04/28/2024 10:50 AM MANAGER MARKETING MGUS (monoclonal gammopathy of unknown significance) DIFFERENTIAL AUTO Routine 04/28/2024 10:50 AM MANAGER MARKETING MGUS (monoclonal gammopathy of unknown significance) CBC WITH AUTO DIFFERENTIAL Routine 04/28/2024 10:50 AM MANAGER MARKETING MGUS (monoclonal gammopathy of unknown significance) COMPREHENSIVE METABOLIC PANEL Routine 04/28/2024 10:50 AM MANAGER MARKETING MGUS (monoclonal gammopathy of unknown significance) IGA Routine 04/28/2024 10:50 AM MANAGER MARKETING MGUS (monoclonal gammopathy of unknown significance) IGG Routine 04/28/2024 10:50 AM MANAGER MARKETING MGUS (monoclonal gammopathy of unknown significance) IGM Routine 04/28/2024 10:50 AM MANAGER MARKETING MGUS (monoclonal gammopathy of unknown significance) IMMUNOGLOBULIN FREE LIGHT CHAINS Routine 04/28/2024 10:50 AM MANAGER MARKETING MGUS (monoclonal gammopathy of unknown significance) LACTATE DEHYDROGENASE Routine 04/28/2024 10:50 AM MANAGER MARKETING MGUS (monoclonal gammopathy of unknown significance) PROTEIN ELECTROPHORESIS, WITH REFLEX, SERUM Routine 04/28/2024 10:50 AM MANAGER MARKETING MGUS (monoclonal gammopathy of unknown significance) RETICULOCYTES Routine 04/28/2024 10:50 AM MANAGER MARKETING MGUS (monoclonal gammopathy of unknown significance) DEXA TBS AXIAL SKELETON BONE DENSITY 1 OR MORE SITES Schedule Routine, Read Routine (OP Routine) 10/26/2023 11:02 AM CDT Age-related osteoporosis without current pathological fracture from Last 3 Months or Most Recently Relevant to Health Maintenance Results * eGFR (04/28/2024 10:50 AM MANAGER MARKETING) eGFR 72 >=60 mL/min/1. 73 m2 Comment: Interpretive Data Reference Interval Normal >/= 90 mL/min/1.73m2 Mildly decreased* 60 - 89 mL/min/1.73m2 Mildly to moderately decreased 45 - 59 mL/min/1.73m2 Moderately to severely decreased 30 - 44 mL/min/1.73m2 Severely decreased 15 - 29 mL/min/1.73m2 Kidney Failure < 15 mL/min/1.73m2 *Relative to young adult level Estimated glomerular filtration rate is determined by the 2020 CKD-EPI equation recommended by the National Kidney Foundation (A Unifying Approach to GFR Estimation: Recommendations of the NKF-ASK Task Force on Reassessing the Inclusion of Race in Diagnosing Kidney Disease, JASN 202). The CKD-EPI equation should not be used for patients with unstable renal function and has not been validated in children and those over 70. Current interpretive data was last reviewed 2021. Testing performed by: [facility], [address], [place] [address] Blood 04/28/2024 10:5 0 AM MANAGER MARKETING 04/28/2024 11:38 AM MANAGER MARKETING us Cherri Durham MD LAB BLOOD ORDERABLES Final Result [facility] [address] Department [place] [address] * Differential, auto (04/28/2024 10:50 AM MANAGER MARKETING) Neutrophil abs 4.6 1.5 - 6.5 K/cumm Comment:Testing performed by : [facility], [facility], [address] [place] [address] Imm gran abs 0.0 0.0 - 0.1 K/cumm CERNER BJWCH Comment:Testing performed by : [place] [address], [address] [place] [address] Lymphocyte abs 1.6 0.8 - 3.3 K/cumm CERNER BJWCH Comment:Testing performed by : [facility], [address] [place] [address] Monocyte abs 0.7 0.2 - 0.8 K/cumm CERNER BJWCH Comment:Testing performed by : [place] [address], [address] [place] [address] Eosinophil abs 0.2 0.0 - 0.5 K/cumm CERNER BJWCH Comment:Testing performed by : [place] [address], [address] [place] [address] Basophil abs 0.1 0.0 - 0.1 K/cumm CERNER BJWCH Comment:Testing performed by : [place] [address], [address] [place] [address] Neutrophil pct 63.3 % CERNER BJWCH Comment: Interpretive Data Percent cell count reference ranges are not reported, since discordance with absolute values may lead to misinterpretation of CBC data. Current Interpretive Data was last revised on 2017. Testing performed by: [facility], [address] [place] [address] Imm gran pct 0.4 % CERNER BJWCH Comment: Interpretive Data Percent cell count reference ranges are not reported, since discordance with absolute values may lead to misinterpretation of CBC data. Current Interpretive Data was last revised on 2017. Testing performed by: [facility], [facility], [address] [place] [address] Lymphocyte pct 22.5 % CERNER BJWCH Comment: Interpretive Data Percent cell count reference ranges are not reported, since discordance with absolute values may lead to misinterpretation of CBC data. Current Interpretive Data was last revised on 2017. Testing performed by: [facility], [facility], [address] [place] [address] Monocyte pct 10.1 % CERNER BJWCH Comment: Interpretive Data Percent cell count reference ranges are not reported, since discordance with absolute values may lead to misinterpretation of CBC data. Current Interpretive Data was last revised on 2017. Testing performed by: [facility], [facility], [address] [place] [address] Eosinophil pct 2.9 % CERNER BJWCH Comment: Interpretive Data Percent cell count reference ranges are not reported, since discordance with absolute values may lead to misinterpretation of CBC data. Current Interpretive Data was last revised on 2017. Testing performed by: [facility], [facility], [address] [place] [address] Basophil pct 0.8 % CERNER BJWCH Comment: Interpretive Data Percent cell count reference ranges are not reported, since discordance with absolute values may lead to misinterpretation of CBC data. Current Interpretive Data was last revised on 2017. Testing performed by: [facility], [facility], [address] [place] [address] Blood 04/28/2024 10:5 0 AM MANAGER MARKETING 04/28/2024 10:52 AM MANAGER MARKETING us Cherri Durham MD LAB BLOOD ORDERABLES Final Result J[facility]AN JOSE [facility] [address] [facility]. Department [place] [address] * (ABNORMAL) Immunoglobulin free light chains (04/28/2024 10:50 AM MANAGER MARKETING) [facility] [place]/Lambda ratio BJH 1.80(H) 0.26 - 1.65 Comment: Interpretive Data The Binding Site FreeLite assay procedure was used. Results from different manufacturers or methods may not be comparable. Serial testing should be performed using the same methods and instrumentation. Current Interpretive Data was last revised on 2023. Testing performed by: [facility], [address] [place]., [address] [place] free light chain BJH 2.07(H) 0.33 - 1.94 mg/dL JUAN JOSE WEBB Comment: Interpretive Data The Binding Site FreeLite assay procedure was used. Results from different manufacturers or methods may not be comparable. Serial testing should be performed using the same methods and instrumentation. Current Interpretive Data was last revised on 2023. Testing performed by: [facility], [address] [place] [address]., [address] Lambda free light chain BJ 1.15 0.57 - 2.63 mg/dL JUAN JOSE WEBB Comment: Interpretive Data The Binding Site FreeLite assay procedure was used. Results from different manufacturers or methods may not be comparable. Serial testing should be performed using the same methods and instrumentation. Current Interpretive Data was last revised on 2023. Testing performed by: [facility], [address] [place] [address]., [address] Blood 04/28/2024 10:5 0 AM MANAGER MARKETING 04/28/2024 2:13 PM MANAGER MARKETING us Cherri Durham MD LAB BLOOD ORDERABLES Final Result [facility] [address] [facility]. Department [place] [address] * CBC with auto differential (04/28/2024 10:50 AM MANAGER MARKETING) [facility] WBC 7.2 3.8 - 9.9 K/cumm Comment:Testing performed by : [facility], [facility], [address] [place] [address] Hgb 13.0 11.9 - 15.5 g/dL CERNER BJWCH Comment:Testing performed by : [facility], [facility], [address] [place] [address] Hct 39.3 35.6 - 45.5 % CERNER BJWCH Comment:Testing performed by : [facility], [address], [place] [address] Plt 265 150 - 400 K/cumm CERNER BJWCH Comment:Testing performed by : [facility], [address], [place] [address] MPV 10.9 9.1 - 12.3 fL CERNER BJWCH Comment:Testing performed by : [facility], [address], [place] [address] RBC 4.35 3.90 - 5.20 M/cumm CERNER BJWCH Comment:Testing performed by : [facility], [address], [place] [address] MCV 90 81 - 96 fL CERNER BJWCH Comment:Testing performed by : [facility], [address] [place] [address] MCH 29.9 27.1 - 33.3 pg CERNER BJWCH Comment:Testing performed by : [facility], [address], [place] [address] MCHC 33.1 32.3 - 35.7 g/dL CERNER BJWCH Comment:Testing performed by : [facility], [address], [place] [address] RDW CV 14.3 11.1 - 14.9 % CERNER BJWCH Comment:Testing performed by : [facility], [address], [place] [address] RDW SD 47.7 35.7 - 48.1 fL CERNER BJWCH Comment:Testing performed by : [facility], [address] [place] [address] Blood 04/28/2024 10:5 0 AM MANAGER MARKETING 04/28/2024 10:52 AM MANAGER MARKETING Cherri Durham MD LAB BLOOD ORDERABLES Final Result Performing Organization Address [facility] Co de Phone Number [facility] [address] [facility]. [place] [address] * Reticulocyte Count (04/28/2024 10:50 AM MANAGER MARKETING) [facility] Retics, absolute 0.057 0.020 - 0.087 M/cumm Comment:Testing performed by : [facility], [facility], [address] [place] [address] Retics 1.3 0.4 - 2.9 % [facility] Comment:Testing performed by : [facility], [facility], [address] [place] [address] Reticulocyte Hgb 34.0 30.5 - 38.0 pg CERTERESSA BJW Comment:Testing performed by : [facility], [facility], [address] [place] [address] Blood 04/28/2024 10:5 0 AM MANAGER MARKETING 04/28/2024 10:52 AM MANAGER MARKETING Cherri Durham MD LAB BLOOD ORDERABLES Final Result Performing Organization Address [facility] Co de Phone Number JUAN JOSE [facility] [address] [facility]. [place] [address] * (ABNORMAL) Protein electrophoresis with reflex, serum (04/28/2024 10:50 AM MANAGER MARKETING) [facility] Protein, sr 7.2 6.2 - 8.2 g/dL Comment:Testing performed by : [facility], [facility] [facility], [place]., [address] Albumin 3.8 3.2 - 5.0 g/dL CERNER BJWCH Comment:Testing performed by : [facility], [address] [place] [address]., [address] Alpha-1 globulin 0.3 0.2 - 0.4 g/dL JUAN JOSE BJWCH Comment:Testing performed by : [facility], [address] [place] [address]., [address] Alpha-2 globulin 0.9 0.5 - 1.0 g/dL JUAN JOSE BJWCH Comment:Testing performed by : [facility], [address] [place] [address]., [address] Beta-1 globulin 0.5 0.3 - 0.6 g/dL JUAN JOSE BJWCH Comment:Testing performed by : [facility], [address] [place] [address]., [address] Beta-2 globulin 0.4 0.2 - 0.6 g/dL JUAN JOSE BJWCH Comment:Testing performed by : [facility], [address] [place] [address]., [address] Gamma globulin 1.3 0.5 - 1.7 g/dL JUAN JOSE BJW Comment:Testing performed by : [facility], [address] [place] [address]., [address] Rstr Pk Gamma 0.5(H) 0.0 - 0.0 g/dL JUAN JOSE BJW Comment:Testing performed by : [facility], [address] [place] [address], [address] SPEP interp See Comment JUAN JOSE BJWELMER Comment: SPEP INTERPRETATION: Abnormal restricted peak in gamma region. History of monoclonal protein. Testing performed by: [facility], [address] [place] [address]., [address] Blood 04/28/2024 10:5 0 AM MANAGER MARKETING 04/28/2024 2:10 PM MANAGER MARKETING us Cherri Durham MD LAB BLOOD ORDERABLES Final Result [facility] [address] [facility]. Department [place] [address] * Lactate dehydrogenase (LD) (04/28/2024 10:50 AM MANAGER MARKETING) Lactate dehydrogenase (LDH) 227 100 - 250 Units/L Comment:Testing performed by : [facility], [address] [facility], [place] [address] Blood 04/28/2024 10:5 0 AM MANAGER MARKETING 04/28/2024 11:38 AM MANAGER MARKETING Cherri Durham MD LAB BLOOD ORDERABLES Final Result [facility] [facility] [address] [facility] [facility] [place] [address] * IgA (04/28/2024 10:50 AM MANAGER MARKETING) Immunoglobulin A 232 70 - 400 mg/dL Comment:Testing performed by : [facility], [address] [place] [address]., [address] Blood 04/28/2024 10:5 0 AM MANAGER MARKETING 04/28/2024 2:41 PM MANAGER MARKETING Cherri Durham MD LAB BLOOD ORDERABLES Final Result Performing Organization Address City/[facility]/ZIP Co de Phone Number [facility] [address] [facility] [facility] [place] [address] * IgM (04/28/2024 10:50 AM MANAGER MARKETING) Immunoglobulin M 44 40 - 230 mg/dL Comment:Testing performed by : [facility], [address] [place] [address]., [address] Blood 04/28/2024 10:5 0 AM MANAGER MARKETING 04/28/2024 2:41 PM MANAGER MARKETING Cherri Durham MD LAB BLOOD ORDERABLES Final Result [facility] [address] Department [place] [address] * IgG (04/28/2024 10:50 AM MANAGER MARKETING) Pathologist [facility] Immunoglobulin G 1,459 700 - 1,600 mg/dL Comment:Testing performed by : [facility], [facility], [place]., [address] Blood 04/28/2024 10:5 0 AM MANAGER MARKETING 04/28/2024 2:41 PM MANAGER MARKETING us Cherri Durham MD LAB BLOOD ORDERABLES Final Result [facility] [address] Department [place] [address] * Comprehensive metabolic panel (04/28/2024 10:50 AM MANAGER MARKETING) [facility] Sodium 142 135 - 145 mmol/L Comment:Testing performed by : [facility], [address], [place] [address] Potassium, pl 3.6 3.3 - 4.9 mmol/L [facility]ER [facility] Comment:Testing performed by : [facility], [address], [place] [address] Chloride 102 97 - 110 mmol/L [facility] Comment:Testing performed by : [facility], [address], [place] [address] CO2 29 22 - 32 mmol/L [facility] Comment:Testing performed by : [facility], [address], [place] [address] Anion gap 11 2 - 15 mmol/L [facility] Comment:Testing performed by : [facility], [address], [place] [address] BUN 20 6 - 25 mg/dL [facility] Comment:Testing performed by : [facility], [address], [place] [address] Creatinine 0.82 0.60 - 1.10 mg/dL [facility] Comment:Testing performed by : [facility], [address], [place] [address] Glucose 96 70 - 199 mg/dL [facility] Comment: Interpretive Data Fasting glucose >/= 126 mg/dl is diagnostic for diabetes. Fasting is defined as no caloric intake for at least 8 hours. Fasting glucose between 100 mg/dl to 125 mg/dl is diagnostic of prediabetes. In a patient with classic symptoms of hyperglycemia or hyperglycemic crisis, a random glucose >/= 200 mg/dl is diagnostic for diabetes. In the absence of unequivocal hyperglycemia, results should be confirmed by repeat testing. The classification and Diagnosis of Diabetes Diabetes Care 2021; 46: S19-S40. Current interpretive data was last revised 2022. Testing performed by: [facility], [address], [place] [address] Calcium 9.5 8.5 - 10.3 mg/dL [facility] Comment:Testing performed by : [facility], [address], [place] [address] Bilirubin, total 0.6 0.1 - 1.2 mg/dL [facility] Comment:Testing performed by : [facility], [address], [place] [address] Protein, pl 7.7 6.5 - 8.5 g/dL [facility] Comment:Testing performed by : [facility], [address], [place] [address] Albumin 3.9 3.5 - 5.0 g/dL [facility] Comment:Testing performed by : [facility], [address], [place] [address] Alk phos 90 40 - 130 Units/L [facility]ER [facility] Comment:Testing performed by : [facility], [address], [place] [address] ALT 20 7 - 45 Units/L [facility] Comment:Testing performed by : [facility], [address], [place] [address] AST 17 10 - 45 Units/L [facility] Comment:Testing performed by : [facility], [address] [facility], [place] [address] Blood 04/28/2024 10:5 0 AM MANAGER MARKETING 04/28/2024 11:38 AM MANAGER MARKETING us Cherri Durham MD LAB BLOOD ORDERABLES Final Result [facility] [address] [facility]. [place] [address] * Dexa TBS Axial Skeleton Bone Density 1 or more sites (10/26/2023 11:02 AM CDT) Anatomical Region Laterality Modality Wrist, Body N/A Radiographic Asuncion ging Narrative 10/26/2023 8:02 PM CDT Patient Name: Dominguez Lowe Date of : 1940 Date of scan: 10/26/2023 Bone mineral density was performed on a [employer] Discovery Densitometer. Based on machine cross-calibration and precision studies the least significant changes of this densitometer is 0.024 g/cm2 at the spine, 0.020 g/cm2 at the total proximal femur, and 0.014g/cm2 at the forearm. HISTORY: This is a 83 y.o. postmenopausal female with a history of asthma, breast cancer, low bone mass, and thyroid disease. She reports that she has never smoked. She has never used smokeless tobacco. Currently on treatment with vitamin D, anticoagulants, and thyroid hormone and current complaint of arm pain. INDICATIONS: Menopause status, history of prior wrist fracture, and history of low bone mass. FINDINGS: BONE MINERAL DENSITY OF THE LUMBAR SPINE Bone Mineral Density (BMD) of the lumbar spine was measured from L1-L4 and the average density was calculated to be 1.452 gm/cm2. This corresponds to a T-score (standard deviations from the mean of young adults) of 3.7. There is no previous study available for comparison. BONE MINERAL DENSITY OF THE PROXIMAL FEMUR Bone Mineral Density (BMD) of the left hip total was found to be 0.933 gm/cm2. This corresponds to a T-score standard deviations from the mean of young adults of -0.1. Femoral neck is 0.663 gm/cm2 with a T-score (standard deviations from the mean of young adults) of -1.7. There is no previous study available for comparison. BONE MINERAL DENSITY OF THE FOREARM Bone Mineral density (BMD) of the left proximal 1/3 of the radius measures 0.576 gm/cm2. This corresponds to a T-score (standard deviations from the mean of young adults) of -2.0. There is no previous study available for comparison. A forearm bone density study was performed in addition to the routine study because of severe degenerative disease . SUMMARY: Bone mineral density shows evidence of low bone mass at the proximal femur and forearm and moderately increased fracture risk (Osteopenia). The lumbar spine Trabecular Bone Score is 1.169 which suggests degraded bone microarchitecture compared to the general population. Final decisions regarding diagnostic or therapeutic recommendations should include BMD, TBS, additional clinical risk factors as well the clinical context of the patient. Please see attached TBS results for further details. ADDITIONAL COMMENTS: Postmenopausal Women and Men Over 50: Diagnostic criteria: Osteoporosis: BMD at or below -2.5 T-score; Osteopenia (low bone mass): BMD between -1.0 and -2.5 T-score. If the patient has a history of a fragility fracture, a fracture that occurred with trauma equivalent to a fall from a standing position or less, then the diagnosis is osteoporosis regardless of bone density. The history and data sections of the bone mineral density scan were prepared by Esther Vera (R)([facility])who is accredited by the International Society of Clinical Densitometry. The overall patient assessment and scan interpretation were performed by Claudia Macedo M.D. who is certified by the International Society of Clinical Densitometry. [id number] Claudia Macedo MD IMG DXA PROCEDURES Final Resu lt from Last 3 Months or Most Recently Relevant to Health Maintenance Insurance [employer] MEDICARE [facility] Advance Directives For more information, please contact: [phone] * Full Code (Latest Code Status on File) Date Activated Date Inactivated Comments 11/07/2022 11:42 PM 11/10/2022 8:16 PM * Full Code Date Activated Date Inactivated Comments 11/07/2022 11:42 PM 11/07/2022 11:42 PM Care Teams Enrober Relationship Specialty Start Date End Date Davy Carias MD [address] [place] [address] PCP - General Internal Medicine 11/20/17 Rehan Knight MD [address] [facility] [address] [place] [address] Referring Physician Otolaryngology 11/20/17
--- OUTSIDE RECORDS SUMMARY | 2024-06-29 10:06 | XMS_ITS | Encounter Summary ---
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 Never 04/28/2024 9:13 AM Radha Hu, RM A Q2: How many drinks containing alcohol do you have on a typical day when you are drinking? Patient does not drink 04/28/2024 9:13 AM Radha Hu RMA Q3: How often do you have six or more drinks on one occasion? Never 04/28/2024 9:13 AM Radha Hu RM A documented as of this encounter Plan of Treatment Not on file documented as of this encounter Procedures Procedure Name Priority Date/Time Associated Diagnosis Comments MRI TRANSFER OF OUTSIDE FILMS Routine 09/20/2014 12:00 AM CDT documented in this encounter Results * MRI Outside Reference (09/20/2014 12:00 AM CDT) Impressions [facility] - 08/16/2021 12:28 PM CDT These images are for Reference purposes only and have not been reviewed by [facility] Radiology. There will be no report generated by a [facility] Radiologist. Narrative [facility] - 08/16/2021 12:28 PM CDT EXAMINATION: Images For Reference Purposes Only us Alvin Cottrell MD IMG MRI PROCEDURES Final Re sult [facility] documented in this encounter Visit Diagnoses Not on filedocumented in this encounter
--- OUTSIDE RECORDS SUMMARY | 2024-06-29 10:06 | XMS_ITS | Encounter Summary ---
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 Never 04/28/2024 9:13 AM Radha Hu RM A Q2: How many drinks containing [...] Procedure Name Priority Date/Time Associated Diagnosis Comments CT BODY OUTSIDE REFERENCE Routine 07/31/2016 12:00 AM CDT documented in this encounter Results * CT Body Outside Reference (07/31/2016 12:00 AM CDT) Impressions [facility] - 08/16/2021 12:31 PM CDT These images are for Reference purposes only and have not been reviewed by [facility] Radiology. There will be no report generated by a [facility] Radiologist. Narrative [facility] - 08/16/2021 12:31 PM CDT EXAMINATION: Images For Reference Purposes Only us Alvin Cottrell MD IMG CT PROCEDURES Final Res ult [facility] documented in this encounter Visit Diagnoses Not on filedocumented in this encounter
--- OUTSIDE RECORDS SUMMARY | 2024-06-29 10:06 | XMS_ITS ---
Author Organization [facility] Address [address] [place] [address] Care Team Providers Care Aluminum Container Tester Name Role Phone Rehan Knight MD Unavailable Davy Carias MD Primary Care Provider Active Problems Problem Noted Date Diagnosed Date [...] (11/25/2022): Documented and Primary care physician's note HYDABURG (hard of hearing) 11/25/2022 Open displaced comminuted [...] Description: s/p R partial nephrectomy 14yrs ago Current Treatment and Therapy Plans No current plan information found. Past Treatment and Therapy Plans No past plan information found. Lifetime Dose Tracking * Chemical Lifetime Dose Automatic Entry Manual Entr y Fluoro Time 1.432 minutes 1.432 minutes 0 minutes Air kerma at the reference point (Ka,r) 3.08 mGy 3 .08 mGy 0 mGy DLP 4,052 mGycm 4,052 mGycm 0 mGycm
--- OUTSIDE RECORDS SUMMARY | 2024-06-29 10:06 | XMS_ITS | Referral Summary ---
Author Organization [facility] Address [address] [place] [id number] Care Team Providers Care Optical Glass Silverer Name Role Phone Rehan Knight MD Unavailable [phone] Davy Carias MD Primary Care Provider Encounters Date Type Department Care Team Description 04/28/2024 10:30 AM SUPPOSITORY MOLDING MACHINE OPERATOR Lab [facility] at [address] [address] MGUS (monoclonal gammopathy of unknown significance) 04/28/2024 10:30 AM SUPPOSITORY MOLDING MACHINE OPERATOR Lab [facility] Oncology [address] [place] [address] 04/28/2024 9:30 AM SUPPOSITORY MOLDING MACHINE OPERATOR Office Visit [facility] Hematology [address] Medical Office Building 2 [address] [place] [address] Cherri Durham MD MGUS (monoclonal gammopathy of unknown significance) (Primary Dx); Abnormal SPEP 04/21/2024 Telephone [facility] Hematology [address] Floor 6 [place] [address] Hillary Hinojosa from Last 3 Months Allergies Active Allergy Reactions Criticality Noted Date [...] (11/25/2022): Documented and Primary care physician's note VENETIE IRA (hard of hearing) 11/25/2022 Open displaced comminuted [...] Description: s/p R partial nephrectomy 14yrs ago Immunizations Immunization Administration Dates Next Due Tdap 11/07/2022 Social History Tobacco Use Types Packs/Day Years [...] on file Legal Sex Female 7:57 AM SUPPOSITORY MOLDING MACHINE OPERATOR Gender Identity Not on file Sexual Orientation Not on file Last Filed Vital Signs Vital Sign Reading Time Taken Comments Blood Pressure 136/85 04/28/2024 9:13 AM SUPPOSITORY MOLDING MACHINE OPERATOR Pulse 91 04/28/2024 9:13 AM SUPPOSITORY MOLDING MACHINE OPERATOR Temperature 36.8 C (98.2 F) 04/28/2024 9:13 AM SUPPOSITORY MOLDING MACHINE OPERATOR Respiratory Rate 18 04/28/2024 9:13 AM SUPPOSITORY MOLDING MACHINE OPERATOR Oxygen Saturation 96% 04/28/2024 9:13 AM SUPPOSITORY MOLDING MACHINE OPERATOR Inhaled Oxygen Concentration - - Weight 88.8 kg (195 lb 12.8 oz) 04/28/2024 9:13 AM SUPPOSITORY MOLDING MACHINE OPERATOR Height 160 cm (5' 3 ) 04/28/2024 9:13 AM SUPPOSITORY MOLDING MACHINE OPERATOR Body Mass Index 34.68 04/28/2024 9:13 AM SUPPOSITORY MOLDING MACHINE OPERATOR Plan of Treatment Not on file Medical Devices Implanted Type Area Clipper Machine Operator Device Identifier Shelf Expiration Date Model / Serial / Lot Synthes 3.5mm 6mm 75mm 2.5mm Self Tap Small Hexagonal Socket Low Profile 204.875 - [id number] Implanted:Qty: 2 on 11/07/2022 by Gerson Hernandez MD at [facility] Right: Leg Synthes I 204.875 / / Synthes 3.5mm 6mm 14mm 2.5mm Self Tap Small Hexagonal Socket Low Profile 204.814 - [id number] Implanted:Qty: 3 on 11/07/2022 by Gerson Hernandez MD at [facility] Right: Leg Synthes I 204.814 / / Synthes 3.5mm 6mm 48mm 2.5mm Self Tap Small Hexagonal Socket Low Profile 204.848 - [id number] Implanted:Qty: 1 on 11/07/2022 by Gerson Hernandez MD at [facility] Right: Leg Synthes I 204.848 / / Synthes Lcp Combi 177mm 11 Hole Fibula Right Distal Lateral Contour Plate 02.112.152 - [id number] Implanted:Qty: 1 on 11/07/2022 by Gerson Hernandez MD at [facility] Right: Leg Synthes I 02112.15 2 / / Synthes Lcp 58mm 2 Hole Head 7 Hole Shaft Low Profile Cut To Length T 249.670 - [id number] Implanted:Qty: 1 on 11/07/2022 by Gerson Hernandez MD at [facility] Right: Leg Synthes I 249.670 / / Synthes 2.4mm 4mm 36mm Self Tap Self Retain Stardrive Low Profile Cortex 201.786 - [id number] Implanted:Qty: 1 on 11/07/2022 by Gerson Hernandez MD at [facility] Right: Leg Synthes I 201.786 / / Synthes Screw Bone 2.4mm 48mm Lcp Ss T8 Forefoot Midfoot Cortex 02.210.948 - [id number] Implanted:Qty: 1 on 11/07/2022 by eGrson Hernandez MD at [facility] Right: Leg Synthes I 210.94 8 / / Synthes 2.4mm 4mm 40mm Self Tap Self Retain Stardrive Low Profile Cortex 201.790 - [id number] Implanted:Qty: 1 on 11/07/2022 by Gerson Hernandez MD at [facility] Right: Leg Synthes I 201.790 / / Synthes 2.4mm 4mm 30mm Self Tap Self Retain Stardrive Low Profile Cortex 201.780 - [id number] Implanted:Qty: 1 on 11/07/2022 by Gerson Hernandez MD at [facility] Right: Leg Synthes I 201.780 / / Synthes 2.7mm 2.1mm 18mm Self Tap Lock Stardrive Thread Head Profile T8 202.218 - [id number] Implanted:Qty: 3 on 11/07/2022 by Gerson Hernandez MD at [facility] Right: Leg Synthes I 202.218 / / Synthes 2.7mm 2.1mm 20mm Self Tap Lock Stardrive Thread Head Profile T8 202.220 - [id number] Implanted:Qty: 2 on 11/07/2022 by Gerson Hernandez MD at [facility] Right: Leg Synthes I 202.220 / / Explanted Type Area Clipper Machine Operator Device Identifier Shelf Expiration Date Model / Serial / Lot [employer] Azucena .062in 9in Trocar [employer] [id number] - [id number] Explanted:Qty: 3 on 11/07/2022 by Gerson Hernandez MD at [facility] Right: Leg [employer] [id number] S / / Procedures Procedure Name Priority Date/Time Associated Diagnosis Comments EGFR Routine 04/28/2024 10:50 AM SUPPOSITORY MOLDING MACHINE OPERATOR MGUS (monoclonal gammopathy of unknown significance) DIFFERENTIAL AUTO Routine 04/28/2024 10:50 AM SUPPOSITORY MOLDING MACHINE OPERATOR MGUS (monoclonal gammopathy of unknown significance) CBC WITH AUTO DIFFERENTIAL Routine 04/28/2024 10:50 AM SUPPOSITORY MOLDING MACHINE OPERATOR MGUS (monoclonal gammopathy of unknown significance) COMPREHENSIVE METABOLIC PANEL Routine 04/28/2024 10:50 AM SUPPOSITORY MOLDING MACHINE OPERATOR MGUS (monoclonal gammopathy of unknown significance) IGA Routine 04/28/2024 10:50 AM SUPPOSITORY MOLDING MACHINE OPERATOR MGUS (monoclonal gammopathy of unknown significance) IGG Routine 04/28/2024 10:50 AM SUPPOSITORY MOLDING MACHINE OPERATOR MGUS (monoclonal gammopathy of unknown significance) IGM Routine 04/28/2024 10:50 AM SUPPOSITORY MOLDING MACHINE OPERATOR MGUS (monoclonal gammopathy of unknown significance) IMMUNOGLOBULIN FREE LIGHT CHAINS Routine 04/28/2024 10:50 AM SUPPOSITORY MOLDING MACHINE OPERATOR MGUS (monoclonal gammopathy of unknown significance) LACTATE DEHYDROGENASE Routine 04/28/2024 10:50 AM SUPPOSITORY MOLDING MACHINE OPERATOR MGUS (monoclonal gammopathy of unknown significance) PROTEIN ELECTROPHORESIS, WITH REFLEX, SERUM Routine 04/28/2024 10:50 AM SUPPOSITORY MOLDING MACHINE OPERATOR MGUS (monoclonal gammopathy of unknown significance) RETICULOCYTES Routine 04/28/2024 10:50 AM SUPPOSITORY MOLDING MACHINE OPERATOR MGUS (monoclonal gammopathy of unknown significance) DEXA TBS AXIAL SKELETON BONE DENSITY 1 OR MORE SITES Schedule Routine, Read Routine (OP Routine) 10/26/2023 11:02 AM CDT Age-related osteoporosis without current pathological fracture from Last 3 Months or Most Recently Relevant to Health Maintenance Results * eGFR (04/28/2024 10:50 AM SUPPOSITORY MOLDING MACHINE OPERATOR) [facility] eGFR 72 >=60 mL/min/1. 73 m2 Comment: [...] of Race in Diagnosing Kidney Disease, JASN 2020). The CKD-EPI equation should not be used for patients with unstable renal function and has not been validated in children and those over 70. Current interpretive data was last reviewed 2021. Testing performed by: [facility], [address] [place] [address] Blood 04/28/2024 10:5 0 AM SUPPOSITORY MOLDING MACHINE OPERATOR 04/28/2024 11:38 AM SUPPOSITORY MOLDING MACHINE OPERATOR us Cherri [place] MD LAB BLOOD ORDERABLES Final Result [facility] [address] [place] [address] * Differential, auto (04/28/2024 10:50 AM SUPPOSITORY MOLDING MACHINE OPERATOR) Neutrophil abs 4.6 1.5 - 6.5 K/cumm Comment:Testing performed by : [facility], [facility], [address] [place] [address] Imm gran abs 0.0 0.0 - 0.1 K/cumm JUAN JOSE WEBB Comment:Testing performed by : [facility], [facility], [address] [place] [address] Lymphocyte abs 1.6 0.8 - 3.3 K/cumm JUAN JOSE WEBB Comment:Testing performed by : [facility], [facility], [address] [place] [address] Monocyte abs 0.7 0.2 - 0.8 K/cumm CERNER B[facility] Comment:Testing performed by : [facility], [facility], [address] [place] [address] Eosinophil abs 0.2 0.0 - 0.5 K/cumm CERNER [facility] Comment:Testing performed by : [facility], [facility], [address] [place] [address] Basophil abs 0.1 0.0 - 0.1 K/cumm CERNER [facility] Comment:Testing performed by : [facility], [facility], [address] [place] [address] Neutrophil pct 63.3 % CERNER B[facility] Comment: Interpretive Data Percent cell count reference ranges are not reported, since discordance with absolute values may lead to misinterpretation of CBC data. Current Interpretive Data was last revised on 2017. Testing performed by: [facility], [facility], [address] [place] [address] Imm gran pct 0.4 % CERNER [facility] Comment: Interpretive Data Percent cell count reference ranges are not reported, since discordance with absolute values may lead to misinterpretation of CBC data. Current Interpretive Data was last revised on 2017. Testing performed by: [facility], [facility], [address] [place] [address] Lymphocyte pct 22.5 % CERNER [facility] Comment: Interpretive Data Percent cell count reference ranges are not reported, since discordance with absolute values may lead to misinterpretation of CBC data. Current Interpretive Data was last revised on 2017. Testing performed by: [facility], [facility], [address] [place] [address] Monocyte pct 10.1 % CERNER [facility] Comment: Interpretive Data Percent cell count reference ranges are not reported, since discordance with absolute values may lead to misinterpretation of CBC data. Current Interpretive Data was last revised on 2017. Testing performed by: [facility], [facility], [address] [place] [address] Eosinophil pct 2.9 % JUAN JOSE WEBB Comment: Interpretive Data Percent cell count reference ranges are not reported, since discordance with absolute values may lead to misinterpretation of CBC data. Current Interpretive Data was last revised on 2017. Testing performed by: [facility], [facility], [address] [place] [address] Basophil pct 0.8 % JUAN JOES WEBB Comment: Interpretive Data Percent cell count reference ranges are not reported, since discordance with absolute values may lead to misinterpretation of CBC data. Current Interpretive Data was last revised on 2017. Testing performed by: [facility], [facility], [address] [place] [address] Blood 04/28/2024 10:5 0 AM SUPPOSITORY MOLDING MACHINE OPERATOR 04/28/2024 10:52 AM SUPPOSITORY MOLDING MACHINE OPERATOR Cherri [place] MD LAB BLOOD ORDERABLES Final Result J[facility] JOSE WEBB [address] [facility]. [place] [address] * (ABNORMAL) Immunoglobulin free light chains (04/28/2024 10:50 AM SUPPOSITORY MOLDING MACHINE OPERATOR) [place]/Lambda ratio BJ 1.80(H) 0.26 - 1.65 Comment: Interpretive Data The Binding Site FreeLite assay procedure was used. Results from different manufacturers or methods may not be comparable. Serial testing should be performed using the same methods and instrumentation. Current Interpretive Data was last revised on 2023. Testing performed by: [facility], [address] [place]., [address] [place] free light chain BJH 2.07(H) 0.33 - 1.94 mg/dL JUAN JOSE WEBB Comment: Interpretive Data The Binding Site FreeLite assay procedure was used. Results from different manufacturers or methods may not be comparable. Serial testing should be performed using the same methods and instrumentation. Current Interpretive Data was last revised on 2023. Testing performed by: [facility] [address] [place]., [address] Lambda free light chain BJH 1.15 0.57 - 2.63 mg/dL JUAN JOSE WEBB Comment: Interpretive Data The Binding Site FreeLite assay procedure was used. Results from different manufacturers or methods may not be comparable. Serial testing should be performed using the same methods and instrumentation. Current Interpretive Data was last revised on 2023. Testing performed by: [facility], [address] [place]., [address] Blood 04/28/2024 10:5 0 AM SUPPOSITORY MOLDING MACHINE OPERATOR 04/28/2024 2:13 PM SUPPOSITORY MOLDING MACHINE OPERATOR us Cherri [place] MD LAB BLOOD ORDERABLES Final Result [facility] [address] [facility]. [place] [address] * CBC with auto differential (04/28/2024 10:50 AM SUPPOSITORY MOLDING MACHINE OPERATOR) WBC 7.2 3.8 - 9.9 K/cumm Comment:Testing performed by : [facility] 2, [address] [place] [address] Hgb 13.0 11.9 - 15.5 g/dL JUAN JOSE WEBB Comment:Testing performed by : [facility] 2, [address] [place] [address] Hct 39.3 35.6 - 45.5 % JUAN JOSE WEBB Comment:Testing performed by : [facility] 2, [address] [place] [address] Plt 265 150 - 400 K/cumm JUAN JOSE WEBB Comment:Testing performed by : [facility] 2, [address] [place] [address] MPV 10.9 9.1 - 12.3 fL JUAN JOSE WEBB Comment:Testing performed by : [facility] 2, [address] [place] [address] RBC 4.35 3.90 - 5.20 M/cumm [facility] Comment:Testing performed by : [facility], [facility], [address] [place] [address] MCV 90 81 - 96 fL [facility] Comment:Testing performed by : [place] [address], [address] [place] [address] MCH 29.9 27.1 - 33.3 pg [facility] Comment:Testing performed by : [facility], [facility], [address] [place] [address] MCHC 33.1 32.3 - 35.7 g/dL [facility] Comment:Testing performed by : [facility] 2, [address] [place] [address] RDW CV 14.3 11.1 - 14.9 % [facility] Comment:Testing performed by : [facility], [facility], [address] [place] [address] RDW SD 47.7 35.7 - 48.1 fL [facility] Comment:Testing performed by : [facility] 2, [address] [place] [address] Blood 04/28/2024 10:5 0 AM SUPPOSITORY MOLDING MACHINE OPERATOR 04/28/2024 10:52 AM SUPPOSITORY MOLDING MACHINE OPERATOR us Cherri [place] MD LAB BLOOD ORDERABLES Final Result [facility] [address] [facility] [place] [address] * Reticulocyte Count (04/28/2024 10:50 AM SUPPOSITORY MOLDING MACHINE OPERATOR) Retics, absolute 0.057 0.020 - 0.087 M/cumm Comment:Testing performed by : [place] [address], [address] [place] [address] Retics 1.3 0.4 - 2.9 % JUAN JOSE WEBB Comment:Testing performed by : [facility], [facility], [address] [place] [address] Reticulocyte Hgb 34.0 30.5 - 38.0 pg JUAN JOSE WEBB Comment:Testing performed by : [facility], [facility], [address] [place] [address] Blood 04/28/2024 10:5 0 AM SUPPOSITORY MOLDING MACHINE OPERATOR 04/28/2024 10:52 AM SUPPOSITORY MOLDING MACHINE OPERATOR us Cherri [place] MD LAB BLOOD ORDERABLES Final Result [facility] [address] [facility]. [place] [address] * (ABNORMAL) Protein electrophoresis with reflex, serum (04/28/2024 10:50 AM SUPPOSITORY MOLDING MACHINE OPERATOR) Pathologist [facility] Protein, sr 7.2 6.2 - 8.2 g/dL Comment:Testing performed by : [facility], [address] [place] [address]., [address] Albumin 3.8 3.2 - 5.0 g/dL JUAN JOSE WEBB Comment:Testing performed by : [facility], [address] [place] [address]., [address] Alpha-1 globulin 0.3 0.2 - 0.4 g/dL JUAN JOSE WEBB Comment:Testing performed by : [facility], [address] [place] [address]., [address] Alpha-2 globulin 0.9 0.5 - 1.0 g/dL JUAN JOSE WEBB Comment:Testing performed by : [facility], [address] [place] [address]., [address] Beta-1 globulin 0.5 0.3 - 0.6 g/dL JUAN JOSE [facility]UMW[facility] Comment:Testing performed by : [facility], [address] [place] [address]., [address] Beta-2 globulin 0.4 0.2 - 0.6 g/dL JUAN JOSE MCCOY Comment:Testing performed by : [facility], [address] [place] [address]., [address] Gamma globulin 1.3 0.5 - 1.7 g/dL JUAN JOSE MCCOY Comment:Testing performed by : [facility], [address] [place] [address]., [address] Rstr Pk Gamma 0.5(H) 0.0 - 0.0 g/dL JUAN JOSE MCCOY Comment:Testing performed by : [facility], [address] [place] [address]., [address] SPEP interp See Comment JUAN JOSE WEBB Comment: SPEP INTERPRETATION: Abnormal restricted peak in gamma region. History of monoclonal protein. Testing performed by: [facility], [address] [place] [address]., [address] Blood 04/28/2024 10:5 0 AM SUPPOSITORY MOLDING MACHINE OPERATOR 04/28/2024 2:10 PM SUPPOSITORY MOLDING MACHINE OPERATOR Cherri [place] MD LAB BLOOD ORDERABLES Final Result Performing Organization Address City/[facility]/ZIP Co de Phone Number [facility] [address] [facility] [address] * Lactate dehydrogenase (LD) (04/28/2024 10:50 AM SUPPOSITORY MOLDING MACHINE OPERATOR) Lactate dehydrogenase (LDH) 227 100 - 250 Units/L Comment:Testing performed by : [facility], [address] [facility], [place] [address] Blood 04/28/2024 10:5 0 AM SUPPOSITORY MOLDING MACHINE OPERATOR 04/28/2024 11:38 AM SUPPOSITORY MOLDING MACHINE OPERATOR Cherri [place] MD LAB BLOOD ORDERABLES Final Result Performing Organization Address City/[facility]/ZIP Co de Phone Number [facility] [address] [facility]. [facility] [place] [address] * IgA (04/28/2024 10:50 AM SUPPOSITORY MOLDING MACHINE OPERATOR) Immunoglobulin A 232 70 - 400 mg/dL Comment:Testing performed by : [facility], [address] [place] [address]., [address] Blood 04/28/2024 10:5 0 AM SUPPOSITORY MOLDING MACHINE OPERATOR 04/28/2024 2:41 PM SUPPOSITORY MOLDING MACHINE OPERATOR Cherri [place] MD LAB BLOOD ORDERABLES Final Result [facility] [address] [facility]. [facility] [place] [address] * IgM (04/28/2024 10:50 AM SUPPOSITORY MOLDING MACHINE OPERATOR) Immunoglobulin M 44 40 - 230 mg/dL Comment:Testing performed by : [facility], [address] [place] [address]., [address] Blood 04/28/2024 10:5 0 AM SUPPOSITORY MOLDING MACHINE OPERATOR 04/28/2024 2:41 PM SUPPOSITORY MOLDING MACHINE OPERATOR Cherri [place] MD LAB BLOOD ORDERABLES Final Result Performing Organization Address [facility]/ZIP Co de Phone Number [facility] [address] [facility]. [facility] [place] [address] * IgG (04/28/2024 10:50 AM SUPPOSITORY MOLDING MACHINE OPERATOR) Immunoglobulin G 1,459 700 - 1,600 mg/dL Comment:Testing performed by : [facility], [address] [place] [address]., [address] Blood 04/28/2024 10:5 0 AM SUPPOSITORY MOLDING MACHINE OPERATOR 04/28/2024 2:41 PM SUPPOSITORY MOLDING MACHINE OPERATOR Cherri [place] MD LAB BLOOD ORDERABLES Final Result [facility] [address] [facility]. [facility] [place] [address] * Comprehensive metabolic panel (04/28/2024 10:50 AM SUPPOSITORY MOLDING MACHINE OPERATOR) Sodium 142 135 - 145 mmol/L Comment:Testing performed by : [facility], [address], [place] [address] Potassium, pl 3.6 3.3 - 4.9 mmol/L CERNER [facility] Comment:Testing performed by : [facility], [address], [place] [address] Chloride 102 97 - 110 mmol/L CERNER [facility] Comment:Testing performed by : [facility], [address], [place] [address] CO2 29 22 - 32 mmol/L CERNER B[facility] Comment:Testing performed by : [facility], [address], [place] [address] Anion gap 11 2 - 15 mmol/L CERNER B[facility]WCH Comment:Testing performed by : [facility], [address], [place] [address] BUN 20 6 - 25 mg/dL CERNER BJWCH Comment:Testing performed by : [facility], [address], [place] [address] Creatinine 0.82 0.60 - 1.10 mg/dL CERNER BJWCH Comment:Testing performed by : [facility], [address], [place] [address] Glucose 96 70 - 199 mg/dL CERNER BJW Comment: Interpretive Data Fasting glucose >/= 126 [...] was last revised 2022. Testing performed by: [facility], [address], [place] [address] Calcium 9.5 8.5 - 10.3 mg/dL CERNER BJWCH Comment:Testing performed by : [facility], [address], [place] [address] Bilirubin, total 0.6 0.1 - 1.2 mg/dL CERNER BJWCH Comment:Testing performed by : [facility], [address], [place] [address] Protein, pl 7.7 6.5 - 8.5 g/dL CERNER B[facility]CH Comment:Testing performed by : [facility], [address], [place] [address] Albumin 3.9 3.5 - 5.0 g/dL CERNER B[facility] Comment:Testing performed by : [facility], [address], [place] [address] Alk phos 90 40 - 130 Units/L CERNER B[facility] Comment:Testing performed by : [facility], [address], [place] [address] ALT 20 7 - 45 Units/L CERNER B[facility] Comment:Testing performed by : [facility], [address], [place] [address] AST 17 10 - 45 Units/L CERNER BJWCH Comment:Testing performed by : [facility], [address], [place] [address] Blood 04/28/2024 10:5 0 AM SUPPOSITORY MOLDING MACHINE OPERATOR 04/28/2024 11:38 AM SUPPOSITORY MOLDING MACHINE OPERATOR us Cherri [place] MD LAB BLOOD ORDERABLES Final Result [facility] [address] [place] [address] * Dexa TBS Axial Skeleton Bone Density 1 or more sites (10/26/2023 11:02 AM CDT) Anatomical Region Laterality Modality Wrist, Body N/A Radiographic Asuncion ging Narrative 10/26/2023 8:02 PM CDT Patient Name: Dominguez Lowe Date of : 1940 Date of scan: 10/26/2023 Bone mineral density was performed on a HoloNear Infinity Discovery Densitometer. Based on machine cross-calibration and [...] mineral density scan were prepared by Esther Bermudez)(CBDT)who is accredited by the International Society of Clinical Densitometry. The overall patient assessment and scan interpretation were performed by Claudia Macedo M.D. who is certified by the International Society of Clinical Densitometry. [id number] Claudia Macedo MD IMG DXA PROCEDURES Final Resu lt from Last 3 Months or Most Recently Relevant to Health Maintenance Insurance [facility] MEDICARE [facility] Address: [address] [address] [place] [address] MEDICARE [facility] Address: [id number] [place] [phone] [place] Advance Directives For more information, please contact: [phone] * Full Code (Latest Code Status on File) Date Activated Date Inactivated Comments 11/07/2022 11:42 PM 11/10/2022 8:16 PM * Full Code Date Activated Date Inactivated Comments 11/07/2022 11:42 PM 11/07/2022 11:42 PM Care Teams Optical Glass Silverer Relationship Specialty Start Date End Date Davy Carias MD [address] [place] [address] PCP - General Internal Medicine 11/20/17 Rehan Knight MD [address] [id number] Referring Physician Otolaryngology 11/20/17
--- OUTSIDE RECORDS SUMMARY | 2024-06-29 10:06 | XMS_ITS | Patient Health Record ---
Author Organization [facility] Address [address] [place] [address] Care Team Providers Care Apprentice Cook Name Role Phone Jv Davy Primary Care Provider Vin Yeh DPM Unavailable [phone] ALLERGIES Allergen (clinical drug ingredient) Drug/Non Drug Allergy documented on EMR Reaction Allergy Type Onset Date Status tramadol Tramadol HCl Unknown Drug Allergy Acti ve losartan Cozaar Unknown Drug Allergy Active REASON FOR REFERRAL No Information MEDICATIONS Medication SIG (Take, Route, Fr equency, Duration) Notes Start Date End Date Status Norvasc Active Synthroid Active Xarelto Not-Taking Vitamin D Active Eliquis Active IMMUNIZATIONS Vaccine Route Administration Date Status Comme nts Influenza Unknown 01/11/2018 Administered pneumoccocal Unknown 01/11/2017 Administered pneumoccocal Unknown 11/11/2018 Refused SOCIAL HISTORY Sex Assigned At : Social History Observation Description Sex Assigned At Unknown PROBLEMS Problem Type ICD Code Onset Dates Problem Status W/U Status Risk SNOMED Code Notes Problem Primary osteoarthrit is, right ankle and foot (M19.071) Active confirmed [id number] Problem Primary osteoarthrit is, left ankle and foot (M19.072) Active confirmed [id number] Problem Pain in joints of right hand (M25.541) Active confirmed [id number] PLAN OF TREATMENT No Information Insurance Providers Payer Name Payer Address Payer Phone Subscriber Number Group Number Insured Name Patient Relationship to Insured Coverage Start Date Coverage End Date Medicare [address] [place] [phone] [id number] Dominguez Burks Self - patient is the insured [employer] [address] [place] [phone] [id number] Plan G Dominguez Burks Self - patient is the insured MEDICAL (GENERAL) HISTORY Medical History History ICD Code hypertension Arthritis arrhythmia/Afib colon cancer cancer, kidney Surgical History Surgery Date(Month/Year) Excision keratoacanthoma left forearm, l eft durán 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
[2024-06-29 10:11] LABS: Free T4 Free Thyroxine 1.06 ng/dL (0.76-1.46)
== END 2024-06-29 09:24 | disposition home or self-care (01) ==
LOC: CHSLAB 09:24
PROVIDERS: PCP Internal Medicine; Visit Provider Internal Medicine
DX: E03.4 Atrophy of thyroid (acquired) (principal)
CPT/HCPCS: 36415; 84439; 84443

== ENCOUNTER 2024-10-24 09:56 | Outpatient (CLI) | payer MEDICARE, SELFPAY ==
--- OUTSIDE RECORDS SUMMARY | 2024-10-24 10:09 | XMS_ITS | Encounter Summary ---
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 There will be no report generated by a [facility] Radiologist. Narrative RAD[facility] - 08/16/2021 12:31 PM CDT EXAMINATION: Images For Reference Purposes Only us Alvin Cottrell MD IMG CT PROCEDURES Final Res ult RAD_PACS_[facility] documented in this encounter Visit Diagnoses Not on filedocumented in this encounter
--- OUTSIDE RECORDS SUMMARY | 2024-10-24 10:09 | XMS_ITS | Encounter Summary ---
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 There will be no report generated by a [facility] Radiologist. Narrative RAD[facility]PACS[facility] - 08/16/2021 12:28 PM CDT EXAMINATION: Images For Reference Purposes Only us Alvin Cottrell MD IMG MRI PROCEDURES Final Re sult [facility]_P[facility] documented in this encounter Visit Diagnoses Not on filedocumented in this encounter
--- OUTSIDE RECORDS SUMMARY | 2024-10-24 10:10 | XMS_ITS ---
Author Organization [facility] Address [address] [place] [address] Care Team Providers Care Computer Aided Design Technician Name Role Phone Rehan Knight MD Unavailable [phone] Davy Carias MD Primary Care Provider Active [...] (11/25/2022): Documented and Primary care physician's note [place] (hard of hearing) 11/25/2022 Open displaced comminuted [...] mGy 3 .08 mGy 0 mGy DLP 4,889 mGycm 4,889 mGycm 0 mGycm
--- OUTSIDE RECORDS SUMMARY | 2024-10-24 10:10 | XMS_ITS | Clinical Summary ---
Author Organization [facility] Address [facility] [place] [address] Care Team Providers Care Tool And Die Maker Level Five Name Role Phone Rehan Knight MD Unavailable [phone] Davy Carias MD Primary Care Provider [phone] Allergies Active Allergy Reactions Criticality Noted Date [...] (11/25/2022): Documented and Primary care physician's note [place] (hard of hearing) 11/25/2022 Open displaced comminuted [...] Encounters Date Type Department Care Team Description 08/25/2024 9:45 AM CDT Office Visit [facility] Surgery [address] [facility] [address] [place] [address] [place] [address] Alvin Cottrell MD Choledochal cyst (Primary Dx) 08/25/2024 7:24 AM CDT - 08/25/2024 11:59 PM CDT Hospital Encounter [facility] [address] [place] [address] Alvin Cottrell MD Choledochal cyst; IPMN (intraductal papillary mucinous neoplasm) Discharge Disposition: Discharge to home or self care 08/10/2024 Orders Only [facility] Surgery [address] [place] [address] [facility] 12[address] [place] [address] [place] [address] Alvin Cottrell MD Choledochal cyst (Primary Dx); IPMN (intraductal papillary mucinous neoplasm) from Last 3 Months Immunizations Immunization Administration Dates Next Due Tdap 11/07/2022 Surgical History Surgery Date Site/Laterality Comments SC TONSILLECTOMY PRIMARY/SECONDARY <AGE 12 Tonsillectomy - (Added by TW Conv) HYSTERECTOMY Total Hysterectomy - (Added by TW Conv) SC EXPLORATORY LAPAROTOMY CELIOTOMY W/WO BIOPSY SPX Exploratory [...] on file 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 Gender Identity Not on file Sexual Orientation Not on file Obstetrics History Last Filed Vital Signs Vital Sign Reading Time Taken Comments Blood Pressure 132/86 08/25/2024 9:25 AM CDT Pulse 112 08/25/2024 9:25 AM CDT Temperature 36.5 C (97.7 F) 08/25/2024 9:25 AM CDT Respiratory Rate 18 04/28/2024 9:13 AM BALL WINDER Oxygen Saturation 96% 04/28/2024 9:13 AM BALL WINDER Inhaled Oxygen Concentration - - Weight 89.2 kg (196 lb 9.6 oz) 08/25/2024 9:25 A M CDT Height 160 cm (5' 3) 08/25/2024 9:25 AM CDT Body Mass Index 34.83 08/25/2024 9:25 AM CDT Plan of Treatment Health Maintenance Due Date Last Done Comments Hepatitis B Screening 1958 Zoster Vaccine (1 of 2) 1992 Well Visit 65+ 09/04/2007 Depression Screening 11/08/2023 11/07/2022, 11/08/19 Fall Risk Assessment 11/11/2023 11/10/2022 Covid-19 Vaccine (3 - 2023-2 5 season) 2023 08/10/2020, 07/20/2020 Influenza Vaccine (#1) 2024 2, 02/06/2020, 01/13/2019, Additional history exists Osteoporosis Screening-Bone Density Scan 10/25/2025 10/26/2023 DTaP/Tdap/Td Vaccine (2 - Td or Tdap) 11/07/2032 11/07/2022, 11/07/2022 Pneumococcal vaccine 65+ Completed 019, 05/27/2017, 01/11/2017, Additional history exists Medical Devices Implanted Type Area Coil Strapper Device Identifier Shelf Expiration Date Model / Serial / Lot Synthes 3.5mm 6mm 75mm 2.5mm Self Tap Small Hexagonal Socket Low Profile 204.875 - [id number] Implanted:Qty: 2 on 11/07/2022 by Gerson Hernandez MD at [facility] Right: Leg Synthes I 204.875 / / Synthes 3.5mm 6mm 14mm 2.5mm Self Tap Small Hexagonal Socket Low Profile 204.814 - [id number] Implanted:Qty: 3 on 11/07/2022 by Gerson Hernandez MD at [facility] Right: Leg Synthes I 204.814 / / Synthes 3.5mm 6mm 48mm 2.5mm Self Tap Small Hexagonal Socket Low Profile 204.848 - [id number] Implanted:Qty: 1 on 11/07/2022 by Gerson Hernandez MD at [facility] Right: Leg Synthes I 204.848 / / Synthes Lcp Combi 177mm 11 Hole Fibula Right Distal Lateral Contour Plate 02.112.152 - [id number] Implanted:Qty: 1 on 11/07/2022 by Gerson Hernandez MD at [facility] Right: Leg Synthes I 02.112.15 2 / / Synthes Lcp 58mm 2 Hole Head 7 Hole Shaft Low Profile Cut To Length T 249.670 - [id number] Implanted:Qty: 1 on 11/07/2022 by Gerson Hernandez MD at [facility] Right: Leg Synthes I 249.670 / / Synthes 2.4mm 4mm 36mm Self Tap Self Retain Stardrive Low Profile Cortex 201.786 - [id number] Implanted:Qty: 1 on 11/07/2022 by Gerson Hernandez MD at [facility] Right: Leg Synthes I 201.786 / / Synthes Screw Bone 2.4mm 48mm Lcp Ss T8 Forefoot Midfoot Cortex 02.210.948 - [id number] Implanted:Qty: 1 on 11/07/2022 by Gerson Hernandez MD at [facility] Right: Leg Synthes I 02.210.94 8 / / Synthes 2.4mm 4mm 40mm Self Tap Self Retain Stardrive Low Profile Cortex 201.790 - [id number] Implanted:Qty: 1 on 11/07/2022 by Gerson Hernandez MD at [facility] Right: Leg Synthes I 201.790 / / Synthes 2.4mm 4mm 30mm Self Tap Self Retain Stardrive Low Profile Cortex 201.780 - [id number] Implanted:Qty: 1 on 11/07/2022 by Gerson Hernandez MD at [facility] Right: Leg Synthes I 201.780 / / Synthes 2.7mm 2.1mm 18mm Self Tap Lock Stardrive Thread Head Profile T8 202.218 - [id number] Implanted:Qty: 3 on 11/07/2022 by Gerson Hernandez MD at [facility] Right: Leg Synthes I 202.218 / / Synthes 2.7mm 2.1mm 20mm Self Tap Lock Stardrive Thread Head Profile T8 202.220 - [id number] Implanted:Qty: 2 on 11/07/2022 by Gerson Hernandez MD at [facility] Right: Leg Synthes I 202.220 / / Explanted Type Area Coil Strapper Device Identifier Shelf Expiration Date Model / Serial / Lot [employer] Azucena .062in 9in Trocar [employer] Wire 1600-1321ns - [id number] Explanted:Qty: 3 on 11/07/2022 by Gerson Hernandez MD at [facility] Right: Leg [employer] [id number] S / / Procedures Procedure Name Priority Date/Time Associated Diagnosis Comments CT ABDOMEN PELVIS W CONTRAST Schedule Routine, Read Routine (OP Routine) 08/25/2024 8:44 AM CDT Choledochal cyst IPMN (intraductal papillary mucinous neoplasm) DEXA TBS AXIAL SKELETON BONE DENSITY 1 OR MORE SITES Schedule Routine, Read Routine (OP Routine) 10/26/2023 11:02 AM CDT Age-related osteoporosis without current pathological fracture from Last 3 Months or Most Recently Relevant to Health Maintenance Results * CT Abdomen Pelvis W Contrast (08/25/2024 8:44 AM CDT) Anatomical Region Laterality Modality Body N/A Computed Tomogra phy 08/25/2024 9:23 AM CDT Addenda Addendum by Ian Da Silva MD on 08/25/2024 10:38 AM CDT There is an enlarging nodule of the pericardiophrenic angle (2:35) which measures 1.5 cm, increased in size from comparison examination dated 11/05/2023, at which time it measured approximately 8 mm. In the setting of patient's history of breast cancer, these findings may be concerning for sequela of metastatic disease. Dedicated imaging of the chest is recommended. Dictated by: Leah Leslie M.D. The radiology attending physician has personally reviewed this study, and had reviewed and/or edited this written report and agrees with it. Electronically signed by: Ian Da Silva M.D. Impressions 08/25/2024 9:31 AM CDT Cluster of small cysts at the origin of the common bile duct/pancreatic head, unchanged in appearance from multiple prior imaging studies dating back to MRI dated 08/14/2022. Differential for this finding includes type II choledochal cyst versus serous cystoadenoma. Dictated by: Leah Leslie M.D. The radiology attending physician has personally reviewed this study, and had reviewed and/or edited this written report and agrees with it. Electronically signed by: Ian Da Silva M.D. 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 TECHNIQUE: Transaxial computed tomographic images of the abdomen and pelvis were obtained with intravenous contrast according to the standard protocol after the uneventful administration of 94 mL Opti-Ray 350 intravenous contrast. COMPARISON: Comparison is made to MRI Abdomen dated 01/09/2022 and 08/14/2022, as well as CT Abdomen dated 11/05/2023. FINDINGS: Mild bibasilar atelectasis. Lung bases are otherwise clear, without pleural effusion or pneumothorax. There is a cluster of small cysts at the origin of common bile duct/pancreatic head which measures 2.7 x 2.6 cm in greatest transaxial dimension, similar to multiple comparison examinations dating back to MRI dated 08/14/2022. Normal appearance of the adjacent bile duct and gallbladder. Normal hepatic morphology. Normal appearance of the pancreas, without biliary ductal dilatation. Normal appearance of the spleen and adrenal glands. Symmetric attenuation of the bilateral kidneys. There is a small focus of scarring of the lower pole of the right kidney with an associated calcified focus, unchanged from CT dated 11/05/2023. Normal appearance of the urinary bladder. Diverticulosis of sigmoid colon without evidence of diverticulitis. Postsurgical changes of ileocecal bowel resection. Otherwise, normal appearance of the imaged small and large bowel without abnormal bowel wall thickening. No pneumoperitoneum or intra-abdominal free fluid. Atherosclerotic calcifications of the abdominal aorta. Degenerative changes of the inferior thoracic and lumbar spine and bilateral hips. 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 TECHNIQUE: Transaxial computed tomographic images of the abdomen and pelvis were obtained with intravenous contrast according to the standard protocol after the uneventful administration of 94 mL Opti-Ray 350 intravenous contrast. COMPARISON: Comparison is made to MRI Abdomen dated 01/09/2022 and 08/14/2022, as well as CT Abdomen dated 11/05/2023. FINDINGS: Mild bibasilar atelectasis. Lung bases are otherwise clear, without pleural effusion or pneumothorax. There is a cluster of small cysts at the origin of common bile duct/pancreatic head which measures 2.7 x 2.6 cm in greatest transaxial dimension, similar to multiple comparison examinations dating back to MRI dated 08/14/2022. Normal appearance of the adjacent bile duct and gallbladder. Normal hepatic morphology. Normal appearance of the pancreas, without biliary ductal dilatation. Normal appearance of the spleen and adrenal glands. Symmetric attenuation of the bilateral kidneys. There is a small focus of scarring of the lower pole of the right kidney with an associated calcified focus, unchanged from CT dated 11/05/2023. Normal appearance of the urinary bladder. Diverticulosis of sigmoid colon without evidence of diverticulitis. Postsurgical changes of ileocecal bowel resection. Otherwise, normal appearance of the imaged small and large bowel without abnormal bowel wall thickening. No pneumoperitoneum or intra-abdominal free fluid. Atherosclerotic calcifications of the abdominal aorta. Degenerative changes of the inferior thoracic and lumbar spine and bilateral hips. IMPRESSION: Cluster of small cysts at the origin of the common bile duct/pancreatic head, unchanged in appearance from multiple prior imaging studies dating back to MRI dated 08/14/2022. Differential for this finding includes type II choledochal cyst versus serous cystoadenoma. Dictated by: Leah Leslie M.D. The radiology attending physician has personally reviewed this study, and had reviewed and/or edited this written report and agrees with it. Electronically signed by: Ian Da Silva M.D. us Alvin Cottrell MD IMG CT PROCEDURES Edited Re sult - Final * Dexa TBS Axial Skeleton Bone Density 1 or more sites (10/26/2023 11:02 AM CDT) Anatomical Region Laterality Modality Wrist, Body N/A Radiographic Asuncion ging Narrative 10/26/2023 8:02 PM CDT Patient Name: Dominguez Lowe Date of : 1940 Date of scan: 10/26/2023 Bone mineral density was performed on a [employer] Discovery Densitometer. Based on machine cross-calibration and [...] by the International Society of Clinical Densitometry. [id number] Claudia Macedo MD IM DXA PROCEDURES Final Resu lt from Last 3 Months or Most Recently Relevant to Health Maintenance Insurance [facility] MEDICARE MEDICARE [employer] Member Subscriber Plan / Payer (Ef fective 2014-Present) Name:Dominguez Lowe Relation to Subscriber:Self Name:Dominguez Lowe Payer ID:[id number] Group ID:[id number] Type:Field Agent Address: [address] Advance Directives For more information, please contact: [phone] * Full Code (Latest Code Status on File) Date Activated Date Inactivated Comments 11/07/2022 11:42 PM 11/10/2022 8:16 PM * Full Code Date Activated Date Inactivated Comments 11/07/2022 11:42 PM 11/07/2022 11:42 PM Care Teams Tool And Die Maker Level Five Relationship Specialty Start Date End Date Davy Carias MD [address] [place] [address] PCP - General Internal Medicine 11/20/17 Rehan Knight MD [address] [facility] [address] [place] [address] Referring Physician Otolaryngology 11/20/17
--- OUTSIDE RECORDS SUMMARY | 2024-10-24 10:10 | XMS_ITS | Referral Summary ---
Author Organization [facility] Address [address] [place] [id number] Care Team Providers Care Analog Design Engineer Name Role Phone Rehan Knight MD Unavailable [phone] Davy Carias MD Primary Care Provider Encounters Date Type Department Care Team Description 08/25/2024 9:45 AM CDT Office Visit [facility] [address] [place] [address] [address] [place] [address] [place] [address] Alvin Cottrell MD Choledochal cyst (Primary Dx) 08/25/2024 7:24 AM CDT - 08/25/2024 11:59 PM CDT Hospital Encounter [facility] [address] [place] [id number] Alvin Cottrell MD Choledochal cyst; IPMN (intraductal papillary mucinous neoplasm) Discharge Disposition: Discharge to home or self care 08/10/2024 Orders Only [facility] [address] [place] [address] [address] [place] [address] [place] [address] Alvin Cottrell MD Choledochal cyst (Primary Dx); IPMN (intraductal papillary mucinous neoplasm) from Last 3 Months Allergies Active Allergy [...] (11/25/2022): Documented and Primary care physician's note COEUR D'ALENE (hard of hearing) 11/25/2022 Open displaced comminuted [...] on file 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 Gender Identity Not on file Sexual Orientation Not on file Last Filed Vital Signs Vital Sign Reading Time Taken Comments Blood Pressure 132/86 08/25/2024 9:25 AM CDT Pulse 112 08/25/2024 9:25 AM CDT Temperature 36.5 C (97.7 F) 08/25/2024 9:25 AM CDT Respiratory Rate 18 04/28/2024 9:13 AM INSPECTOR [employer]ION Oxygen Saturation 96% 04/28/2024 9:13 AM INSPECTOR [employer]ION Inhaled Oxygen Concentration - - Weight 89.2 kg (196 lb 9.6 oz) 08/25/2024 9:25 A M CDT Height 160 cm (5' 3) 08/25/2024 9:25 AM CDT Body Mass Index 34.83 08/25/2024 9:25 AM CDT Plan of Treatment Not on file Medical Devices Implanted Type Area Crew Member Device Identifier Shelf Expiration Date Model / Serial / Lot Synthes 3.5mm 6mm 75mm 2.5mm Self Tap Small Hexagonal Socket Low Profile 204.875 - [id number] Implanted:Qty: 2 on 11/07/2022 by Gerson Hernandez MD at [facility] Right: Leg Synthes I 204.875 / / Synthes 3.5mm 6mm 14mm 2.5mm Self Tap Small Hexagonal Socket Low Profile 204.814 - [id number] Implanted:Qty: 3 on 11/07/2022 by Gerson Hernandez MD at [facility] Right: Leg Synthes I 204.814 / / Synthes 3.5mm 6mm 48mm 2.5mm Self Tap Small Hexagonal Socket Low Profile 204.848 - [id number] Implanted:Qty: 1 on 11/07/2022 by Gerson Hernandez MD at [facility] Right: Leg Synthes I 204.848 / / Synthes Lcp Combi 177mm 11 Hole Fibula Right Distal Lateral Contour Plate 02112.152 - [id number] Implanted:Qty: 1 on 11/07/2022 by Gerson Hernandez MD at [facility] Right: Leg Synthes I 02112.15 2 / / Synthes Lcp 58mm 2 Hole Head 7 Hole Shaft Low Profile Cut To Length T 249.670 - [id number] Implanted:Qty: 1 on 11/07/2022 by Gerson Hernandez MD at [facility] Right: Leg Synthes I 249.670 / / Synthes 2.4mm 4mm 36mm Self Tap Self Retain Stardrive Low Profile Cortex 201.786 - [id number] Implanted:Qty: 1 on 11/07/2022 by Gerson Hernandez MD at [facility] Right: Leg Synthes I 201.786 / / Synthes Screw Bone 2.4mm 48mm Lcp Ss T8 Forefoot Midfoot Cortex 02.210.948 - [id number] Implanted:Qty: 1 on 11/07/2022 by Gerson Hernandez MD at [facility] Right: Leg Synthes I 02.210.94 8 / / Synthes 2.4mm 4mm 40mm Self Tap Self Retain Stardrive Low Profile Cortex 201.790 - [id number] Implanted:Qty: 1 on 11/07/2022 by Gerson Hernandez MD at [facility] Right: Leg Synthes I 201.790 / / Synthes 2.4mm 4mm 30mm Self Tap Self Retain Stardrive Low Profile Cortex 201.780 - [id number] Implanted:Qty: 1 on 11/07/2022 by Gerson Hernandez MD at [facility] Right: Leg Synthes I 201.780 / / Synthes 2.7mm 2.1mm 18mm Self Tap Lock Stardrive Thread Head Profile T8 202.218 - [id number] Implanted:Qty: 3 on 11/07/2022 by Gerson Hernandez MD at [facility] Right: Leg Synthes I 202.218 / / Synthes 2.7mm 2.1mm 20mm Self Tap Lock Stardrive Thread Head Profile T8 202.220 - [id number] Implanted:Qty: 2 on 11/07/2022 by Gerson Hernandez MD at [facility] Right: Leg Synthes I 202.220 / / Explanted Type Area Crew Member Device Identifier Shelf Expiration Date Model / Serial / Lot [employer] Azucena .062in 9in Trocar [employer] One [employer] Orthopedic Wire 1600-9686ns - [id number] Explanted:Qty: 3 on 11/07/2022 by Gerson Hernandez MD at [facility] Right: Leg [employer]vi [employer] [id number] S / / Procedures Procedure Name Priority [...] Electronically signed by: Ian Da Silva M.D. Alvin Cottrell MD IMG CT PROCEDURES Edited Re sult - Final * Dexa TBS Axial Skeleton Bone Density 1 or more sites (10/26/2023 11:02 AM CDT) Anatomical Region Laterality Modality Wrist, Body N/A Radiographic Asuncion ging Narrative 10/26/2023 8:02 PM CDT Patient Name: Dominguez Lowe Date of : 1940 Date of scan: 10/26/2023 Bone mineral density was performed on a Axial Discovery Densitometer. Based on machine cross-calibration and [...] density scan were prepared by Esther Vera (R)(CBDT)who is accredited by the International Society of Clinical Densitometry. The overall patient assessment and scan interpretation were performed by Claudia Macedo M.D. who is certified by the International Society of Clinical Densitometry. [id number] Claudia Macedo MD IMG DXA PROCEDURES Final Resu lt from Last 3 Months or Most Recently Relevant to Health Maintenance Insurance [facility] MEDICARE MEDICARE [place] [facility] Advance Directives For more information, please contact: [phone] * Full Code (Latest Code Status on File) Date Activated Date Inactivated Comments 11/07/2022 11:42 PM 11/10/2022 8:16 PM * Full Code Date Activated Date Inactivated Comments 11/07/2022 11:42 PM 11/07/2022 11:42 PM Care Teams Analog Design Engineer Relationship Specialty Start Date End Date Davy Carias MD [address] [place] [address] PCP - General Internal Medicine 11/20/17 Rehan Knight MD [address] [facility] [address] [place] [address] Referring Physician Otolaryngology 11/20/17
[2024-10-24 10:24] LABS: Hematocrit 42.9 % (35.0-42.0); Hemoglobin 14.1 g/dL (11.7-13.8); Mean Corpuscular HGB Conc 32.9 g/dL (32-36); Mean Corpuscular Hemoglobin 30.2 pg (27.0-31.0); Mean Corpuscular Volume 91.9 fL (78.0-102.0); Platelet Count Result 253 K/mm3 (150-420); Red Blood Count 4.67 M/mm3 (4.20-5.40); White Blood Count 7.0 K/mm3 (4.8-10.8)
[2024-10-24 10:33] LABS: Add Urine Microscopic? NO; Appearance Urine Clear (Clear); Glucose Urine UA Negative (Negative); Hemoglobin A1C 5.9 % (<5.7); Leukocyte Esterase Ur Negative LEU/UL (Negative); Nitrate Urine Negative (Negative); Specific Grav Ur 1.010 (1.010-1.020)
[2024-10-24 11:09] LABS: Alanine Aminotransferase 21 U/L (6-35); Albumin Level 4.1 g/dL (3.5-5.1); Alkaline Phosphatase 76 U/L (38-126); Anion Gap 3 mmol/L (4-12); Aspartate Amino Transferase 25 U/L (14-36); Bilirubin,Total 0.9 mg/dL (0.2-1.3); Blood Urea Nitrogen 19 mg/dL (7-17); Calcium 9.1 mg/dL (8.4-10.2); Carbon Dioxide 33 mmol/L (22-30); Chloride 103 mmol/L (98-107); Cholesterol 182 mg/dL (0-200); Estimated Glomerular Filt Rate 57; Glucose 109 mg/dL (65-110); HDL Direct 55 mg/dL; Osmolality Calculated 291 mOsm/kg (285-295); Potassium 4.4 mmol/L (3.4-5.0); Sodium 139 mmol/L (137-145); Total Protein 7.0 g/dL (6.3-8.2); Triglycerides 127 mg/dL (<150)
[2024-10-24 11:24] LABS: Free T4 Free Thyroxine 1.24 ng/dL (0.78-2.19)
[2024-10-24 11:38] LABS: Thyroid Stimulating Hormone 1.030 uIU/mL (0.465-4.680)
[2024-10-24 12:20] LABS: Free T3 3.58 pg/mL (2.18-3.98)
== END 2024-10-24 09:57 | disposition home or self-care (01) ==
LOC: CHSLAB 10:01
PROVIDERS: PCP Internal Medicine; Visit Provider Internal Medicine
DX: E03.4 Atrophy of thyroid (acquired) (principal); E78.2 Mixed hyperlipidemia; R73.01 Impaired fasting glucose; N39.0 Urinary tract infection, site not specified; M81.0 Age-related osteoporosis without current pathological fracture
CPT/HCPCS: 36415; 80053; 80061; 81003; 82306; 83036; 84439; 84443; 84481; 85027